=== PATIENT | female | born 1960 | race Caucasian/White ===

== ENCOUNTER 2016-06-11 11:19 | Emergency (ER) | payer OTHER ==
[~2016-06-11] VITALS: Ht 167.6 cm; Wt 82.7 kg
[~2016-06-11 11:19] MED LIST: ADVAIR 250/501 DISK IH; ADVAIR 500/501 DISK IH; ADVAIR HFA120 INHALA IH; ALPRAZOLAM0.25 M2 PO; AMITRIPTYLINE H10 MG PO; ATARAX,VISTARIL25 MG PO; ATIVAN0.5 MG PO; Advair HFA 115/21 IH; BUTALB-APAP-CA1 EACH PO; CIPRO500 MG PO; Ceftin PO; DAILY VITE1 EAC1 PO; DELTASONE10 MG PO; DEXILANT60 MG PO; DULCOLAX10 MG PR; DUONEB 2.5-0.5 M3 ML AEROSOL; ELAVIL25 MG PO; ESOMEPRAZOLE MA40 MG PO; EXCEDRIN MIGRA1 EAC3 PO; FEVERALL650 M1 PR; FIORICET 50-301 EACH PO; FIORICET,ESG1 TABLET PO; Fioricet,Esgic,Repan PO; GUAIASORB DM L118 ML PO; HALOPERIDOL2 MG/1 ML PO; HYDROMORPHONE HC4 MG PO; INDERAL40 MG PO; INDOCIN25 MG PO; KADIAN10 MG PO; LEVSIN0.125 MG PO; LEXAPRO10 MG PO; LEXAPRO20 MG PO; LISINOPRIL20 MG PO; Lexapro PO; MORPHINE CON20 MG/M1 PO; NEXIUM40 MG PO; NICODERM CQ1 EAC2 TD; NICOTINE PATCH1 EAC2 TD; NOHOMEMEDS; ONDANSETRON ODT4 MG PO; PEPCID20 MG PO; PREDNISONE10 MG PO; PRILOSEC20 MG PO; PRINIVIL10 MG PO; PROAIR HFA8.5 GM IH; PROCHLORPERAZIN10 MG PO; PROPRANOLOL HCL40 MG PO; PROTONIX40 MG PO; PROVENTIL,2.5 MG/0.5 IH; PROVENTIL2.5 MG/3 M IH; Protonix PO; REGLAN5 MG PO; SENNA8.6 MG PO; SPIRIVA RESPIMAT4 GM IH; SPIRIVA1 INHALATI; SPIRIVA1 INHALATI IH; SYMBICORT60 INHALAT IH; ULTRAM50 MG PO; Ultram PO; VENTOLIN17 GM IH; XANAX0.25 MG PO; ZESTRIL20 MG PO; ZOCOR20 MG PO; ZOFRAN ODT8 MG PO; Zestril,Prinivil PO
[2016-06-11] MEDS ORDERED: ATIVAN0.5 MG PO (14:00)
[2016-06-11] MEDS ORDERED: INDERAL40 MG PO (14:00)
[2016-06-11 14:14] VITALS: BP 138/87
== END 2016-06-11 14:15 | disposition home or self-care (01) ==
LOC: EME 11:19
DX: Z76.0 Encounter for issue of repeat prescription (principal); F41.9 Anxiety disorder, unspecified; G43.909 Migraine, unspecified, not intractable, without status migrainosus
CPT/HCPCS: 99281; 99283

== ENCOUNTER 2016-08-24 13:29 | Emergency (ER) | payer OTHER ==
[~2016-08-24] VITALS: Ht 167.6 cm; Wt 66.1 kg
[2016-08-24] MEDS ORDERED: ADVAIR 250/501 DISK IH (13:52)
[2016-08-24] MEDS ORDERED: OMEPRAZOLE20 MG PO (13:52)
[2016-08-24] MEDS ORDERED: SPIRIVA1 INHALATI IH (13:53)
[2016-08-24] MEDS ORDERED: VENLAFAXINE HCL75 M3 PO (13:54)
[2016-08-24] MEDS ORDERED: LISINOPRIL20 MG PO (13:54)
[2016-08-24] MEDS ORDERED: CLONAZEPAM1 MG PO (13:54)
[2016-08-24] MEDS ORDERED: PROAIR HFA8.5 GM IH (13:55)
[2016-08-24 14:27] LABS: HEMATOCRIT 35.1 % (36.0-46.0); MCH 30.5 PG (29.0-34.0); MCHC 34.2 G/DL (30.0-36.0); MCV 89.3 FL (83-99); MEAN PLAT.VOLUME 9.5 uM^3 (9.5-12.4); PLATELET COUNT 430 K/uL (156-360); RBC DIS.WIDTH-CV 11.8 % (11.8-14.6); RED BLOOD COUNT 3.93 M/uL (3.80-5.20); WHITE BLOOD COUNT 17.2 K/uL (4.1-10.2)
[2016-08-24 14:36] LABS: CHLORIDE 96 mEq/L (99-109); POTASSIUM 4.5 mEq/L (3.7-5.4); SODIUM 127 mEq/L (136-147)
[2016-08-24 14:38] LABS: GLUCOSE 164 mg/dL (70-99)
[2016-08-24 14:39] LABS: ANION GAP 10 MEQ/L (2-14)
[2016-08-24 14:40] LABS: TOTAL BILIRUBIN 0.2 mg/dL (0.0-1.0)
[2016-08-24 14:42] LABS: ALKALINE PHOSPHATASE 78 IU/L (3-129); GFR ESTIMATE (CALCULATED) > 59 mL/min/
[2016-08-24 14:43] LABS: UREA NITROGEN (BUN) 17 mg/dL (9-23)
[2016-08-24 14:45] LABS: LIPASE 7 U/L (1.0-51.0)
[2016-08-24 15:00] LABS: ADD MIUA? NO; BILIRUBIN NEGATIVE; BLOOD NEGATIVE; COLOR COLORLESS ((YELLOW)); GLUCOSE (STRIP) NEGATIVE; KETONES NEGATIVE; LEUKOCYTES NEGATIVE; NITRITE NEGATIVE; PROTEIN (STRIP) NEGATIVE; SPECIFIC GRAVITY 1.006 (1.000-1.030); UROBILINOGEN 0.2 MG/DL (0.2-1.0)
[2016-08-24] MEDS ORDERED: PROTONIX40 MG PO (16:03)
[2016-08-24] MEDS ORDERED: BENTYL20 MG PO (16:03)
[2016-08-24 16:21] VITALS: BP 117/95
[2016-08-25] MEDS ORDERED: LEXAPRO20 MG PO (15:57)
[2016-08-25] MEDS ORDERED: DUONEB 2.5-0.5 M3 ML AEROSOL (15:58)
== END 2016-08-24 16:23 | disposition home or self-care (01) ==
LOC: EME → EDBD 13:29 → EME 13:29
PROVIDERS: Nurse Practitioner Family
DX: K27.9 Peptic ulcer, site unspecified, unspecified as acute or chronic, without hemorrhage or perforation (principal); D72.829 Elevated white blood cell count, unspecified; E78.5 Hyperlipidemia, unspecified; I10 Essential (primary) hypertension; Z88.6 Allergy status to analgesic agent
CPT/HCPCS: 80053; 81003; 83605; 83690; 85027; 99281; 99285; J2270; J7030

== ENCOUNTER 2016-08-25 11:47 | Inpatient (IN) | payer OTHER ==
[~2016-08-25] VITALS: Ht 142.2 cm; Wt 37.0 kg
[~2016-08-25 11:47] MED LIST changes: +BENTYL20 MG PO; +CLONAZEPAM1 MG PO; +OMEPRAZOLE20 MG PO; +VENLAFAXINE HCL75 M3 PO
[2016-08-25 12:40] LABS: BASOPHIL COUNT 0.1 K/uL (0-0.1); EOSINOPHIL (%) 1.9 % (0-5); EOSINOPHIL COUNT 0.3 K/uL (0-0.3); HEMATOCRIT 32.9 % (36.0-46.0); IMMATURE GRANULOCYTE (%) 0.7 % (0.0-0.7); IMMATURE GRANULOCYTE COUNT 0.1 K/uL; LYMPHOCYTE COUNT 1.9 K/uL (1.0-2.8); MCH 30.9 PG (29.0-34.0); MCV 90.6 FL (83-99); MEAN PLAT.VOLUME 9.8 uM^3 (9.5-12.4); MONOCYTE COUNT 0.9 K/uL (0-0.8); NEUTROPHIL (%) 78.6 % (45-76); PLATELET COUNT 445 K/uL (156-360); RBC DIS.WIDTH-CV 12.3 % (11.8-14.6); RBC DIS.WIDTH-SD 40.4 % (39-53); RED BLOOD COUNT 3.63 M/uL (3.80-5.20); WHITE BLOOD COUNT 15.3 K/uL (4.1-10.2)
[2016-08-25 12:50] LABS: CHLORIDE 102 mEq/L (99-109); POTASSIUM 4.4 mEq/L (3.7-5.4)
[2016-08-25 12:52] LABS: SODIUM 135 mEq/L (136-147)
[2016-08-25 12:53] LABS: GLUCOSE 147 mg/dL (70-99)
[2016-08-25 12:54] LABS: ANION GAP 10 MEQ/L (2-14)
[2016-08-25 12:56] LABS: ALKALINE PHOSPHATASE 67 IU/L (3-129); GFR ESTIMATE (CALCULATED) > 59 mL/min/
[2016-08-25 12:57] LABS: UREA NITROGEN (BUN) 17 mg/dL (9-23)
[2016-08-25 13:00] LABS: LIPASE 8 U/L (1.0-51.0)
[2016-08-25 13:01] LABS: TOTAL BILIRUBIN 0.1 mg/dL (0.0-1.0)
[2016-08-25] MEDS ORDERED: LEXAPRO20 MG PO (15:57)
[2016-08-25] MEDS ORDERED: DUONEB 2.5-0.5 M3 ML AEROSOL (15:58)
[2016-08-25 21:22] VITALS: BP 150/94
[2016-08-26] VITALS: BP 132/95
[2016-08-26 03:32] VITALS: BP 141/96
[2016-08-26 07:23] LABS: BASOPHIL COUNT 0.1 K/uL (0-0.1); EOSINOPHIL (%) 4.7 % (0-5); EOSINOPHIL COUNT 0.6 K/uL (0-0.3); HEMATOCRIT 31.1 % (36.0-46.0); IMMATURE GRANULOCYTE (%) 0.6 % (0.0-0.7); IMMATURE GRANULOCYTE COUNT 0.1 K/uL; INSTRUMENT ABS NEUTROPHIL CT 8.5 K/uL; LYMPHOCYTE COUNT 2.3 K/uL (1.0-2.8); MCH 30.6 PG (29.0-34.0); MCHC 32.5 G/DL (30.0-36.0); MCV 94.2 FL (83-99); MEAN PLAT.VOLUME 9.8 uM^3 (9.5-12.4); MONOCYTE (%) 8.4 % (3-12); MONOCYTE COUNT 1.1 K/uL (0-0.8); NEUTROPHIL (%) 67.6 % (45-76); NEUTROPHIL COUNT 8.5 K/uL (1.8-6.4); PLATELET COUNT 408 K/uL (156-360); RBC DIS.WIDTH-CV 12.6 % (11.8-14.6); RBC DIS.WIDTH-SD 43.6 % (39-53); WHITE BLOOD COUNT 12.5 K/uL (4.1-10.2)
[2016-08-26 07:49] VITALS: BP 151/94
[2016-08-26 08:29] LABS: ANION GAP 8 MEQ/L (2-14); CHLORIDE 101 MEQ/L (99-109); GFR ESTIMATE (CALCULATED) > 59 mL/min/; GLUCOSE 138 mg/dL (70-99); IRON 106 MCG/DL (35-150); POTASSIUM 4.4 MEQ/L (3.7-5.4); SAMPLE HEMOLYSIS CHECK 0; SAMPLE ICTERIC CHECK 0; SAMPLE LIPEMIA CHECK 0; SODIUM 135 MEQ/L (136-147); UREA NITROGEN (BUN) 8 mg/dL (9-23)
[2016-08-26 08:33] LABS: TROP-I INTERPRETATION NEGATIVE; TROPONIN-I < 0.01 ng/mL (0.0-0.30)
[2016-08-26 11:23] VITALS: BP 156/99
[2016-08-26 15:20] VITALS: BP 156/98
[2016-08-26 19:25] VITALS: BP 145/99
[2016-08-27] VITALS (9 sets, daily range): BP systolic 113–175; BP diastolic 76–106
[2016-08-27 06:44] LABS: HEMATOCRIT 29.8 % (36.0-46.0); MCH 30.6 PG (29.0-34.0); MCHC 33.2 G/DL (30.0-36.0); MEAN PLAT.VOLUME 9.8 uM^3 (9.5-12.4); PLATELET COUNT 406 K/uL (156-360); RBC DIS.WIDTH-CV 12.6 % (11.8-14.6); RBC DIS.WIDTH-SD 41.3 % (39-53); RED BLOOD COUNT 3.24 M/uL (3.80-5.20); WHITE BLOOD COUNT 12.2 K/uL (4.1-10.2)
[2016-08-28] VITALS (7 sets, daily range): BP systolic 125–170; BP diastolic 82–107
[2016-08-28 07:33] LABS: EOSINOPHIL (%) 4.8 % (0-5); EOSINOPHIL COUNT 0.6 K/uL (0-0.3); HEMATOCRIT 31.2 % (36.0-46.0); IMM.RETIC FRACTION 27.8 % (3-19); IMMATURE GRANULOCYTE (%) 0.6 % (0.0-0.7); IMMATURE GRANULOCYTE COUNT 0.1 K/uL; INSTRUMENT ABS NEUTROPHIL CT 8.3 K/uL; LYMPHOCYTE COUNT 1.8 K/uL (1.0-2.8); MCH 30.8 PG (29.0-34.0); MCHC 33.3 G/DL (30.0-36.0); MCV 92.3 FL (83-99); MEAN PLAT.VOLUME 9.6 uM^3 (9.5-12.4); MONOCYTE (%) 8.5 % (3-12); NEUTROPHIL (%) 70.8 % (45-76); NEUTROPHIL COUNT 8.3 K/uL (1.8-6.4); PLATELET COUNT 445 K/uL (156-360); RBC DIS.WIDTH-CV 12.7 % (11.8-14.6); RBC DIS.WIDTH-SD 41.3 % (39-53); RED BLOOD COUNT 3.38 M/uL (3.80-5.20); RETIC HGB EQUIVALENT 38.8 (28-36); RETICULOCYTE COUNT 3.8 % (0.5-1.8); WHITE BLOOD COUNT 11.7 K/uL (4.1-10.2)
[2016-08-29] VITALS (7 sets, daily range): BP systolic 121–162; BP diastolic 80–100
[2016-08-30] VITALS: BP 116/57
[2016-08-30 03:28] VITALS: BP 123/81
[2016-08-30 07:08] LABS: EOSINOPHIL (%) 0.9 % (0-5); EOSINOPHIL COUNT 0.1 K/uL (0-0.3); HEMATOCRIT 32.4 % (36.0-46.0); IMMATURE GRANULOCYTE (%) 0.6 % (0.0-0.7); IMMATURE GRANULOCYTE COUNT 0.1 K/uL; INSTRUMENT ABS NEUTROPHIL CT 10.6 K/uL; LYMPHOCYTE COUNT 1.1 K/uL (1.0-2.8); MCH 30.9 PG (29.0-34.0); MCHC 33.3 G/DL (30.0-36.0); MCV 92.6 FL (83-99); MEAN PLAT.VOLUME 9.5 uM^3 (9.5-12.4); MONOCYTE (%) 5.2 % (3-12); MONOCYTE COUNT 0.7 K/uL (0-0.8); NEUTROPHIL (%) 84.5 % (45-76); NEUTROPHIL COUNT 10.6 K/uL (1.8-6.4); PLATELET COUNT 477 K/uL (156-360); RBC DIS.WIDTH-SD 42.6 % (39-53); WHITE BLOOD COUNT 12.6 K/uL (4.1-10.2)
[2016-08-30 07:41] LABS: ALKALINE PHOSPHATASE 66 IU/L (3-129); ANION GAP 10 MEQ/L (2-14); CHLORIDE 93 MEQ/L (99-109); GFR ESTIMATE (CALCULATED) > 59 mL/min/; GLUCOSE 142 mg/dL (70-99); POTASSIUM 4.8 MEQ/L (3.7-5.4); SAMPLE HEMOLYSIS CHECK 0; SAMPLE ICTERIC CHECK 0; SAMPLE LIPEMIA CHECK 0; SODIUM 130 MEQ/L (136-147); TOTAL BILIRUBIN 0.3 MG/DL (0.0-1.0); UREA NITROGEN (BUN) 6 mg/dL (9-23)
[2016-08-30 07:50] VITALS: BP 119/68
[2016-08-30 14:57] VITALS: BP 105/69
[2016-08-30 20:00] VITALS: BP 132/84
[2016-08-31 00:15] VITALS: BP 145/79
[2016-08-31 04:00] VITALS: BP 114/81
[2016-08-31 07:18] VITALS: BP 101/77
[2016-08-31 07:26] LABS: EOSINOPHIL (%) 0.1 % (0-5); HEMATOCRIT 29.7 % (36.0-46.0); IMMATURE GRANULOCYTE (%) 0.7 % (0.0-0.7); IMMATURE GRANULOCYTE COUNT 0.1 K/uL; INSTRUMENT ABS NEUTROPHIL CT 14.2 K/uL; LYMPHOCYTE COUNT 1.4 K/uL (1.0-2.8); MCH 31.8 PG (29.0-34.0); MCV 90.8 FL (83-99); MEAN PLAT.VOLUME 11.1 uM^3 (9.5-12.4); MONOCYTE (%) 4.6 % (3-12); MONOCYTE COUNT 0.8 K/uL (0-0.8); NEUTROPHIL (%) 86.2 % (45-76); NEUTROPHIL COUNT 14.2 K/uL (1.8-6.4); PLATELET COUNT 738 K/uL (156-360); RBC DIS.WIDTH-CV 14.9 % (11.8-14.6); RBC DIS.WIDTH-SD 45.1 % (39-53); RED BLOOD COUNT 3.27 M/uL (3.80-5.20); WHITE BLOOD COUNT 16.5 K/uL (4.1-10.2)
[2016-08-31 07:41] LABS: AMYLASE 36 IU/L (1-118); ANION GAP 10 MEQ/L (2-14); CHLORIDE 92 MEQ/L (99-109); GFR ESTIMATE (CALCULATED) > 59 mL/min/; GLUCOSE 151 mg/dL (70-99); LIPASE 8 U/L (1.0-51.0); POTASSIUM 4.7 MEQ/L (3.7-5.4); SAMPLE HEMOLYSIS CHECK 0; SAMPLE ICTERIC CHECK 0; SAMPLE LIPEMIA CHECK 0; SODIUM 132 MEQ/L (136-147); UREA NITROGEN (BUN) 9 mg/dL (9-23)
[2016-08-31 11:01] VITALS: BP 122/80
[2016-08-31 15:03] VITALS: BP 142/80
[2016-08-31 19:38] VITALS: BP 144/81
[2016-09-01] VITALS (7 sets, daily range): BP systolic 104–128; BP diastolic 68–80
[2016-09-02 03:27] VITALS: BP 116/79
[2016-09-02 07:14] LABS: BASOPHIL COUNT 0.1 K/uL (0-0.1); EOSINOPHIL (%) 4.4 % (0-5); EOSINOPHIL COUNT 0.5 K/uL (0-0.3); HEMATOCRIT 32.2 % (36.0-46.0); IMMATURE GRANULOCYTE (%) 0.6 % (0.0-0.7); IMMATURE GRANULOCYTE COUNT 0.1 K/uL; INSTRUMENT ABS NEUTROPHIL CT 6.9 K/uL; LYMPHOCYTE COUNT 2.9 K/uL (1.0-2.8); MCH 30.6 PG (29.0-34.0); MEAN PLAT.VOLUME 9.3 uM^3 (9.5-12.4); MONOCYTE (%) 9.8 % (3-12); MONOCYTE COUNT 1.1 K/uL (0-0.8); NEUTROPHIL (%) 59.4 % (45-76); NEUTROPHIL COUNT 6.9 K/uL (1.8-6.4); PLATELET COUNT 567 K/uL (156-360); RBC DIS.WIDTH-CV 13.6 % (11.8-14.6); RBC DIS.WIDTH-SD 46.8 % (39-53); RED BLOOD COUNT 3.37 M/uL (3.80-5.20); WHITE BLOOD COUNT 11.6 K/uL (4.1-10.2)
[2016-09-02 07:19] LABS: MCV 95.5 FL (83-99)
[2016-09-02 07:37] VITALS: BP 118/79
[2016-09-02 11:14] VITALS: BP 121/75
[2016-09-02 16:00] VITALS: BP 123/87
[2016-09-02] MEDS ORDERED: HYDROMORPHONE HC4 MG PO (16:28)
[2016-09-02] MEDS ORDERED: LORAZEPAM0.5 MG PO (16:28)
[2016-09-02 19:49] VITALS: BP 113/84
[2016-09-03 00:23] VITALS: BP 100/73
[2016-09-03 04:12] VITALS: BP 121/89
[2016-09-03 07:51] VITALS: BP 123/85
[2016-09-03 10:53] VITALS: BP 130/80
[2016-09-03] MEDS ORDERED: PROPRANOLOL HCL20 MG PO (14:15)
[2016-09-03] MEDS ORDERED: BUSPAR15 MG PO (14:15)
[2016-09-03] MEDS ORDERED: BENTYL20 MG PO (14:15)
[2016-09-03] MEDS ORDERED: PANTOPRAZOLE SO40 MG PO (14:15)
[2016-09-03] MEDS ORDERED: LISINOPRIL40 MG PO (14:15)
[2016-09-03] MEDS ORDERED: REGLAN5 MG PO (14:15)
[2016-09-03] MEDS ORDERED: LORAZEPAM0.5 MG PO (14:15)
[2016-09-03] MEDS ORDERED: HYDROMORPHONE HC4 MG PO (14:15)
[2016-09-03 15:06] VITALS: BP 115/78
== END 2016-09-03 18:50 | disposition home or self-care (01) | DRG 391 ==
LOC: EME 11:47 → EDOF 15:00 → 5SOUTH 15:00
PROVIDERS: Emergency Medicine; Hospitalist; Internal Medicine; Specialist
PROC: 0DB98ZX Excision of Duodenum, Via Natural or Artificial Opening Endoscopic, Diagnostic (ICD-10-PCS; principal; 2016-08-29)
PROC: 0DB68ZX Excision of Stomach, Via Natural or Artificial Opening Endoscopic, Diagnostic (ICD-10-PCS; principal; 2016-08-29)
DX: K29.80 Duodenitis without bleeding (principal); J18.9 Pneumonia, unspecified organism; K92.1 Melena; J96.10 Chronic respiratory failure, unspecified whether with hypoxia or hypercapnia; F33.9 Major depressive disorder, recurrent, unspecified; F41.9 Anxiety disorder, unspecified; E78.5 Hyperlipidemia, unspecified; E86.0 Dehydration; K31.84 Gastroparesis; R63.0 Anorexia; R07.9 Chest pain, unspecified; D64.9 Anemia, unspecified; D72.829 Elevated white blood cell count, unspecified; J44.9 Chronic obstructive pulmonary disease, unspecified; G89.29 Other chronic pain; I10 Essential (primary) hypertension; E66.9 Obesity, unspecified; K21.9 Gastro-esophageal reflux disease without esophagitis; Z88.0 Allergy status to penicillin; Z88.6 Allergy status to analgesic agent; Z87.891 Personal history of nicotine dependence; Z99.81 Dependence on supplemental oxygen; K22.2 Esophageal obstruction; K44.9 Diaphragmatic hernia without obstruction or gangrene
CPT/HCPCS: 71020; 71250; 74177; 76705; 78264; 78452; 80048; 80053; 81003; 82150; 82272; 82607; 82728; 82746; 83540; 83605; 83690; 84466; 84484; 85025; 85027; 85045; 87040; 88305; 88342 TC; 93005; 93017; 93306; 94640; 94640 76; 94760; 94799; 99202; 99281; 99285; A9500; A9541; C9113; J0456; J0696; J2060; J2270; J2405; J2765; J2785; J2920; J3010; J7030; J7042; J7050; J7120

== ENCOUNTER 2016-12-29 05:03 | Inpatient (IN) | payer OTHER ==
[~2016-12-29] VITALS: Ht 167.6 cm; Wt 83.0 kg
[~2016-12-29 05:03] MED LIST changes: +BUSPAR15 MG PO; +LISINOPRIL40 MG PO; +LORAZEPAM0.5 MG PO; +PANTOPRAZOLE SO40 MG PO; +PROPRANOLOL HCL20 MG PO
[2016-12-29 05:55] LABS: BASOPHIL COUNT 0.1 K/uL (0-0.1); EOSINOPHIL (%) 4.6 % (0-5); EOSINOPHIL COUNT 0.6 K/uL (0-0.3); HEMATOCRIT 36.7 % (36.0-46.0); IMMATURE GRANULOCYTE (%) 0.5 % (0.0-0.7); IMMATURE GRANULOCYTE COUNT 0.1 K/uL; INSTRUMENT ABS NEUTROPHIL CT 9.9 K/uL; LYMPHOCYTE COUNT 1.6 K/uL (1.0-2.8); MCH 29.9 PG (29.0-34.0); MCHC 33.2 G/DL (30.0-36.0); MEAN PLAT.VOLUME 9.8 uM^3 (9.5-12.4); MONOCYTE (%) 9.7 % (3-12); MONOCYTE COUNT 1.3 K/uL (0-0.8); NEUTROPHIL (%) 72.6 % (45-76); NEUTROPHIL COUNT 9.9 K/uL (1.8-6.4); PLATELET COUNT 445 K/uL (156-360); RBC DIS.WIDTH-CV 11.7 % (11.8-14.6); RBC DIS.WIDTH-SD 37.7 % (39-53); RED BLOOD COUNT 4.08 M/uL (3.80-5.20); WHITE BLOOD COUNT 13.6 K/uL (4.1-10.2)
[2016-12-29 06:14] LABS: CHLORIDE 84 mEq/L (99-109); POTASSIUM 4.2 mEq/L (3.7-5.4); SODIUM 129 mEq/L (136-147)
[2016-12-29 06:16] LABS: GLUCOSE 170 mg/dL (70-99)
[2016-12-29 06:17] LABS: ANION GAP 12 MEQ/L (2-14)
[2016-12-29 06:18] LABS: TOTAL BILIRUBIN 0.1 mg/dL (0.0-1.0)
[2016-12-29 06:19] LABS: ALKALINE PHOSPHATASE 73 IU/L (3-129)
[2016-12-29 06:20] LABS: GFR ESTIMATE (CALCULATED) > 59 mL/min/
[2016-12-29 06:21] LABS: UREA NITROGEN (BUN) 10 mg/dL (9-23)
[2016-12-29 06:22] LABS: TROP-I INTERPRETATION NEGATIVE; TROPONIN-I < 0.01 ng/mL (0.0-0.30)
[2016-12-29 09:38] VITALS: BP 156/93
[2016-12-29 12:04] LABS: ADD MIUA? NO; BILIRUBIN NEGATIVE; BLOOD NEGATIVE; COLOR YELLOW ((YELLOW)); GLUCOSE (STRIP) 50; KETONES 20; LEUKOCYTES NEGATIVE; NITRITE NEGATIVE; PROTEIN (STRIP) NEGATIVE; UCUL ADDED? NO; UROBILINOGEN 0.2 MG/DL (0.2-1.0)
[2016-12-29 12:21] VITALS: BP 113/95
[2016-12-29 16:41] VITALS: BP 136/95
[2016-12-29 19:50] VITALS: BP 155/101
[2016-12-29 21:05] VITALS: BP 182/114
[2016-12-29 22:06] VITALS: BP 136/87
[2016-12-30] VITALS (8 sets, daily range): BP systolic 108–168; BP diastolic 52–105
[2016-12-30 06:55] LABS: HEMATOCRIT 38.1 % (36.0-46.0); MCH 29.4 PG (29.0-34.0); MCHC 33.3 G/DL (30.0-36.0); MCV 88.2 FL (83-99); MEAN PLAT.VOLUME 9.9 uM^3 (9.5-12.4); PLATELET COUNT 534 K/uL (156-360); RBC DIS.WIDTH-CV 11.8 % (11.8-14.6); RBC DIS.WIDTH-SD 37.5 % (39-53); RED BLOOD COUNT 4.32 M/uL (3.80-5.20); WHITE BLOOD COUNT 16.7 K/uL (4.1-10.2)
[2016-12-30 07:24] LABS: ALKALINE PHOSPHATASE 65 IU/L (3-129); ANION GAP 9 MEQ/L (2-14); CHLORIDE 85 MEQ/L (99-109); GFR ESTIMATE (CALCULATED) > 59 mL/min/; GLUCOSE 130 mg/dL (70-99); POTASSIUM 4.7 MEQ/L (3.7-5.4); SAMPLE HEMOLYSIS CHECK 1; SAMPLE ICTERIC CHECK 0; SAMPLE LIPEMIA CHECK 0; SODIUM 127 MEQ/L (136-147); TOTAL BILIRUBIN 0.2 MG/DL (0.0-1.0); UREA NITROGEN (BUN) 7 mg/dL (9-23)
[2016-12-31] VITALS (8 sets, daily range): BP systolic 115–184; BP diastolic 64–111
[2016-12-31 06:39] LABS: MCH 31.3 PG (29.0-34.0); MCHC 35.3 G/DL (30.0-36.0); MCV 88.9 FL (83-99); MEAN PLAT.VOLUME 10.5 uM^3 (9.5-12.4); PLATELET COUNT 560 K/uL (156-360); RBC DIS.WIDTH-SD 38.3 % (39-53); WHITE BLOOD COUNT 23.5 K/uL (4.1-10.2)
[2016-12-31 07:10] LABS: ANION GAP 15 MEQ/L (2-14); CHLORIDE 80 MEQ/L (99-109); GFR ESTIMATE (CALCULATED) > 59 mL/min/; GLUCOSE 118 mg/dL (70-99); POTASSIUM 4.9 MEQ/L (3.7-5.4); SAMPLE HEMOLYSIS CHECK 0; SAMPLE ICTERIC CHECK 0; SAMPLE LIPEMIA CHECK 0; SODIUM 121 MEQ/L (136-147); UREA NITROGEN (BUN) 10 mg/dL (9-23)
[2016-12-31 08:35] LABS: SODIUM 120 MEQ/L (136-147)
[2016-12-31 10:11] LABS: URIC ACID < 1.5 mg/dL (3.1-9.2)
[2016-12-31 18:44] LABS: ANION GAP 9 MEQ/L (2-14); CHLORIDE 83 MEQ/L (99-109); GFR ESTIMATE (CALCULATED) > 59 mL/min/; GLUCOSE 133 mg/dL (70-99); POTASSIUM 4.3 MEQ/L (3.7-5.4); SAMPLE HEMOLYSIS CHECK 0; SAMPLE ICTERIC CHECK 0; SAMPLE LIPEMIA CHECK 0; SODIUM 122 MEQ/L (136-147); UREA NITROGEN (BUN) 9 mg/dL (9-23)
[2017-01-01 03:13] LABS: CHLORIDE 85 MEQ/L (99-109); GFR ESTIMATE (CALCULATED) > 59 mL/min/; GLUCOSE 118 mg/dL (70-99); POTASSIUM 4.6 MEQ/L (3.7-5.4); SODIUM 125 MEQ/L (136-147); UREA NITROGEN (BUN) 11 mg/dL (9-23)
[2017-01-01 03:55] VITALS: BP 143/88
[2017-01-01 07:15] VITALS: BP 163/97
[2017-01-01 07:32] LABS: ANION GAP 8 MEQ/L (2-14); CHLORIDE 85 MEQ/L (99-109); GFR ESTIMATE (CALCULATED) > 59 mL/min/; GLUCOSE 119 mg/dL (70-99); POTASSIUM 4.9 MEQ/L (3.7-5.4); SAMPLE HEMOLYSIS CHECK 0; SAMPLE ICTERIC CHECK 0; SAMPLE LIPEMIA CHECK 0; SODIUM 125 MEQ/L (136-147); UREA NITROGEN (BUN) 10 mg/dL (9-23)
[2017-01-01 07:35] LABS: URIC ACID 2.2 mg/dL (3.1-9.2)
[2017-01-01 11:51] VITALS: BP 137/92
[2017-01-01 15:05] VITALS: BP 163/91
[2017-01-01 19:54] VITALS: BP 137/86
[2017-01-02 04:58] VITALS: BP 152/86
[2017-01-02 07:05] VITALS: BP 154/98
[2017-01-02 07:07] LABS: EOSINOPHIL (%) 1.1 % (0-5); EOSINOPHIL COUNT 0.1 K/uL (0-0.3); IMMATURE GRANULOCYTE (%) 0.6 % (0.0-0.7); IMMATURE GRANULOCYTE COUNT 0.1 K/uL; INSTRUMENT ABS NEUTROPHIL CT 7.8 K/uL; MCH 30.3 PG (29.0-34.0); MCHC 32.7 G/DL (30.0-36.0); MCV 92.7 FL (83-99); MEAN PLAT.VOLUME 9.9 uM^3 (9.5-12.4); MONOCYTE (%) 12.1 % (3-12); MONOCYTE COUNT 1.5 K/uL (0-0.8); NEUTROPHIL (%) 62.3 % (45-76); NEUTROPHIL COUNT 7.8 K/uL (1.8-6.4); PLATELET COUNT 493 K/uL (156-360); RBC DIS.WIDTH-CV 12.4 % (11.8-14.6); RBC DIS.WIDTH-SD 42.3 % (39-53); RED BLOOD COUNT 3.99 M/uL (3.80-5.20); WHITE BLOOD COUNT 12.5 K/uL (4.1-10.2)
[2017-01-02 07:26] LABS: ANION GAP 5 MEQ/L (2-14); CHLORIDE 89 MEQ/L (99-109); GFR ESTIMATE (CALCULATED) > 59 mL/min/; GLUCOSE 95 mg/dL (70-99); POTASSIUM 4.2 MEQ/L (3.7-5.4); SAMPLE HEMOLYSIS CHECK 0; SAMPLE ICTERIC CHECK 0; SAMPLE LIPEMIA CHECK 0; UREA NITROGEN (BUN) 7 mg/dL (9-23)
[2017-01-02 07:29] LABS: SODIUM 133 MEQ/L (136-147)
[2017-01-02 11:50] VITALS: BP 130/84
[2017-01-02 20:09] VITALS: BP 127/82
[2017-01-02 23:41] VITALS: BP 122/86
[2017-01-03 03:53] VITALS: BP 128/73
[2017-01-03 06:54] LABS: ANION GAP 6 MEQ/L (2-14); CHLORIDE 93 MEQ/L (99-109); GFR ESTIMATE (CALCULATED) > 59 mL/min/; GLUCOSE 133 mg/dL (70-99); POTASSIUM 4.5 MEQ/L (3.7-5.4); SAMPLE HEMOLYSIS CHECK 0; SAMPLE ICTERIC CHECK 0; SAMPLE LIPEMIA CHECK 0; SODIUM 136 MEQ/L (136-147); UREA NITROGEN (BUN) 11 mg/dL (9-23); URIC ACID 2.7 mg/dL (3.1-9.2)
[2017-01-03 07:05] VITALS: BP 122/76
[2017-01-03] MEDS ORDERED: SPIRIVA RESPIMAT4 GM IH (11:05)
[2017-01-03] MEDS ORDERED: PREDNISONE10 MG PO (11:05)
[2017-01-03] MEDS ORDERED: PROPRANOLOL HCL20 MG PO (11:05)
[2017-01-03] MEDS ORDERED: BUSPAR15 MG PO (11:05)
[2017-01-03] MEDS ORDERED: LISINOPRIL40 MG PO (11:05)
[2017-01-03] MEDS ORDERED: BUTALB-APAP-CA1 EACH PO (11:05)
[2017-01-03] MEDS ORDERED: PULMICORT FLE180 MCG IH (11:05)
[2017-01-03] MEDS ORDERED: CLONAZEPAM1 MG PO (11:05)
[2017-01-03] MEDS ORDERED: ESCITALOPRAM OX20 MG PO (11:05)
[2017-01-03] MEDS ORDERED: PANTOPRAZOLE SO40 MG PO (11:05)
[2017-01-03] MEDS ORDERED: VENTOLIN HFA18 GM IH (11:06)
[2017-01-03 11:45] VITALS: BP 145/94
== END 2017-01-03 14:44 | disposition home or self-care (01) | DRG 191 ==
LOC: EME → EDBD 05:03 → 2EAST 07:16 → EDOF 07:16 → 2EAST 09:28
PROVIDERS: Emergency Medicine; Hospitalist; Internal Medicine; Internal Medicine Nephrology
DX: J44.1 Chronic obstructive pulmonary disease with (acute) exacerbation (principal); J96.11 Chronic respiratory failure with hypoxia; E87.1 Hypo-osmolality and hyponatremia; F32.9 Major depressive disorder, single episode, unspecified; E78.5 Hyperlipidemia, unspecified; E11.9 Type 2 diabetes mellitus without complications; I10 Essential (primary) hypertension; R91.1 Solitary pulmonary nodule; F41.9 Anxiety disorder, unspecified; R64 Cachexia; K21.9 Gastro-esophageal reflux disease without esophagitis; T38.0X5A Adverse effect of glucocorticoids and synthetic analogues, initial encounter; G25.81 Restless legs syndrome; M81.0 Age-related osteoporosis without current pathological fracture; Z91.19 Patient's noncompliance with other medical treatment and regimen; Z99.81 Dependence on supplemental oxygen; Z68.29 Body mass index [BMI] 29.0-29.9, adult; Z87.891 Personal history of nicotine dependence
CPT/HCPCS: 70450; 71020; 80048; 80048 91; 80053; 81003; 82306; 83880; 83930; 83935; 84295; 84300; 84443; 84484; 84550; 85025; 85027; 87493; 87506; 93005; 94640; 94640 76; 94799; 99202; 99281; 99285; J0360; J1170; J1644; J2405; J2920; J7030

== ENCOUNTER 2017-01-08 15:14 | Emergency (ER) | payer OTHER ==
[~2017-01-08] VITALS: Ht 167.6 cm; Wt 83.1 kg
[~2017-01-08 15:14] MED LIST changes: +ESCITALOPRAM OX20 MG PO; +PULMICORT FLE180 MCG IH; +VENTOLIN HFA18 GM IH
[2017-01-08 16:17] LABS: ADD MIUA? YES; BILIRUBIN NEGATIVE; BLOOD NEGATIVE; COLOR YELLOW ((YELLOW)); GLUCOSE (STRIP) NEGATIVE; KETONES NEGATIVE; LEUKOCYTES NEGATIVE; NITRITE NEGATIVE; PROTEIN (STRIP) NEGATIVE; SPECIFIC GRAVITY 1.012 (1.000-1.030); UROBILINOGEN 0.2 MG/DL (0.2-1.0)
[2017-01-08 16:26] LABS: BACTERIA RARE /HPF; EPITHELIAL CELLS 1+ /HPF; MUCUS TRACE /LPF; RED BLOOD CELLS 0-5 /HPF (0-5); UCUL ADDED? NO; WHITE BLOOD CELLS 0-5 /HPF (0-5)
[2017-01-08 16:34] LABS: EOSINOPHIL (%) 1.5 % (0-5); EOSINOPHIL COUNT 0.2 K/uL (0-0.3); IMMATURE GRANULOCYTE (%) 0.9 % (0.0-0.7); IMMATURE GRANULOCYTE COUNT 0.1 K/uL; INSTRUMENT ABS NEUTROPHIL CT 11.2 K/uL; LYMPHOCYTE COUNT 0.9 K/uL (1.0-2.8); MCH 30.4 PG (29.0-34.0); MCHC 32.2 G/DL (30.0-36.0); MCV 94.6 FL (83-99); MEAN PLAT.VOLUME 9.1 uM^3 (9.5-12.4); MONOCYTE (%) 3.9 % (3-12); MONOCYTE COUNT 0.5 K/uL (0-0.8); NEUTROPHIL (%) 86.9 % (45-76); NEUTROPHIL COUNT 11.2 K/uL (1.8-6.4); PLATELET COUNT 434 K/uL (156-360); RBC DIS.WIDTH-CV 12.4 % (11.8-14.6); RBC DIS.WIDTH-SD 42.7 % (39-53); RED BLOOD COUNT 3.91 M/uL (3.80-5.20); WHITE BLOOD COUNT 12.9 K/uL (4.1-10.2)
[2017-01-08 16:43] LABS: CHLORIDE 97 mEq/L (99-109); POTASSIUM 4.9 mEq/L (3.7-5.4); SODIUM 136 mEq/L (136-147)
[2017-01-08 16:45] LABS: GLUCOSE 153 mg/dL (70-99)
[2017-01-08 16:47] LABS: ANION GAP 8 MEQ/L (2-14); TOTAL BILIRUBIN 0.2 mg/dL (0.0-1.0)
[2017-01-08 16:49] LABS: ALKALINE PHOSPHATASE 70 IU/L (3-129); GFR ESTIMATE (CALCULATED) > 59 mL/min/
[2017-01-08 16:50] LABS: UREA NITROGEN (BUN) 16 mg/dL (9-23)
[2017-01-08 16:56] LABS: TROP-I INTERPRETATION NEGATIVE; TROPONIN-I < 0.01 ng/mL (0.0-0.30)
[2017-01-08 21:00] VITALS: BP 127/94
== END 2017-01-08 21:56 | disposition home or self-care (01) ==
LOC: EME 15:14
PROVIDERS: Emergency Medicine
DX: E86.0 Dehydration (principal); Z99.81 Dependence on supplemental oxygen; Z87.891 Personal history of nicotine dependence
CPT/HCPCS: 71010; 80053; 81003; 83605; 84484; 85025; 87040; 87801; 93005; J7030

== ENCOUNTER 2017-02-23 16:26 | Inpatient (IN) | payer OTHER ==
[~2017-02-23] VITALS: Ht 167.6 cm; Wt 83.2 kg
[2017-02-23] VITALS (7 sets, daily range): BP systolic 113–157; BP diastolic 68–104
[2017-02-23 16:40] LABS: BASOPHIL COUNT 0.1 K/uL (0-0.1); EOSINOPHIL (%) 1.2 % (0-5); EOSINOPHIL COUNT 0.2 K/uL (0-0.3); HEMATOCRIT 37.6 % (36.0-46.0); IMMATURE GRANULOCYTE (%) 0.4 % (0.0-0.7); IMMATURE GRANULOCYTE COUNT 0.1 K/uL; INSTRUMENT ABS NEUTROPHIL CT 8.5 K/uL; LYMPHOCYTE COUNT 2.3 K/uL (1.0-2.8); MCH 30.4 PG (29.0-34.0); MCHC 33.5 G/DL (30.0-36.0); MCV 90.6 FL (83-99); MEAN PLAT.VOLUME 9.3 uM^3 (9.5-12.4); MONOCYTE (%) 9.7 % (3-12); MONOCYTE COUNT 1.2 K/uL (0-0.8); NEUTROPHIL (%) 69.4 % (45-76); NEUTROPHIL COUNT 8.5 K/uL (1.8-6.4); PLATELET COUNT 471 K/uL (156-360); RBC DIS.WIDTH-CV 12.8 % (11.8-14.6); RBC DIS.WIDTH-SD 42.2 % (39-53); RED BLOOD COUNT 4.15 M/uL (3.80-5.20); WHITE BLOOD COUNT 12.2 K/uL (4.1-10.2)
[2017-02-23 16:44] LABS: INTER. NORMALIZED RATIO 1.1; PROTHROMBIN TIME 11.7 SEC (10.2-12.9)
[2017-02-23 16:47] LABS: PTT 28.2 SEC (25-37)
[2017-02-23 16:48] LABS: AMYLASE 49 IU/L (1-118); CHLORIDE 95 mEq/L (99-109); POTASSIUM 4.1 mEq/L (3.7-5.4); SODIUM 133 mEq/L (136-147)
[2017-02-23 16:49] LABS: GLUCOSE 169 mg/dL (70-99)
[2017-02-23 16:51] LABS: ANION GAP 13 MEQ/L (2-14)
[2017-02-23 16:53] LABS: GFR ESTIMATE (CALCULATED) > 59 mL/min/; SERUM ETHYL ALCOHOL < 10 mg/dL
[2017-02-23 16:54] LABS: UREA NITROGEN (BUN) 10 mg/dL (9-23)
[2017-02-23 16:56] LABS: LIPASE 3 U/L (1.0-51.0)
[2017-02-23 17:00] LABS: TROP-I INTERPRETATION NEGATIVE; TROPONIN-I 0.22 ng/mL (0.0-0.30)
[2017-02-23 19:56] LABS: METH RESISTANT S AUREUS PCR NEGATIVE (NEGATIVE)
[2017-02-23 20:06] LABS: PROBE CHECK PASS; SPECIMEN PROCESSING CONTROL PASS
[2017-02-24] VITALS (18 sets, daily range): BP systolic 103–143; BP diastolic 60–100
[2017-02-24 00:59] LABS: TROP-I INTERPRETATION POSITIVE
[2017-02-24 01:01] LABS: TROPONIN-I 1.88 ng/mL (0.0-0.30)
[2017-02-24 05:38] LABS: BASOPHIL COUNT 0.1 K/uL (0-0.1); EOSINOPHIL (%) 2.5 % (0-5); EOSINOPHIL COUNT 0.3 K/uL (0-0.3); HEMATOCRIT 38.4 % (36.0-46.0); IMMATURE GRANULOCYTE (%) 0.3 % (0.0-0.7); INSTRUMENT ABS NEUTROPHIL CT 8.1 K/uL; LYMPHOCYTE COUNT 2.7 K/uL (1.0-2.8); MCH 31.1 PG (29.0-34.0); MCHC 33.1 G/DL (30.0-36.0); MCV 94.1 FL (83-99); MONOCYTE COUNT 1.4 K/uL (0-0.8); NEUTROPHIL (%) 64.5 % (45-76); NEUTROPHIL COUNT 8.1 K/uL (1.8-6.4); PLATELET COUNT 474 K/uL (156-360); RBC DIS.WIDTH-CV 13.2 % (11.8-14.6); RBC DIS.WIDTH-SD 45.9 % (39-53); RED BLOOD COUNT 4.08 M/uL (3.80-5.20); WHITE BLOOD COUNT 12.5 K/uL (4.1-10.2)
[2017-02-24 06:04] LABS: ANION GAP 7 MEQ/L (2-14); CHLORIDE 100 MEQ/L (99-109); GFR ESTIMATE (CALCULATED) > 59 mL/min/; GLUCOSE 109 mg/dL (70-99); POTASSIUM 4.7 MEQ/L (3.7-5.4); SAMPLE HEMOLYSIS CHECK 0; SAMPLE ICTERIC CHECK 0; SAMPLE LIPEMIA CHECK 0; SODIUM 138 MEQ/L (136-147); UREA NITROGEN (BUN) 10 mg/dL (9-23)
[2017-02-24 06:40] LABS: TROP-I INTERPRETATION POSITIVE; TROPONIN-I 1.89 ng/mL (0.0-0.30)
[2017-02-24 12:45] LABS: TROP-I INTERPRETATION POSITIVE; TROPONIN-I 1.31 ng/mL (0.0-0.30)
[2017-02-25 04:06] VITALS: BP 110/70
[2017-02-25 08:59] VITALS: BP 102/71
[2017-02-25 11:23] VITALS: BP 110/77
[2017-02-25 15:03] VITALS: BP 117/82
[2017-02-25 19:38] VITALS: BP 103/69
[2017-02-25 23:22] VITALS: BP 111/75
[2017-02-26 04:46] VITALS: BP 119/77
[2017-02-26 07:37] LABS: ANION GAP 6 MEQ/L (2-14); CHLORIDE 94 MEQ/L (99-109); GFR ESTIMATE (CALCULATED) > 59 mL/min/; GLUCOSE 133 mg/dL (70-99); POTASSIUM 4.7 MEQ/L (3.7-5.4); SAMPLE HEMOLYSIS CHECK 0; SAMPLE ICTERIC CHECK 0; SAMPLE LIPEMIA CHECK 0; SODIUM 135 MEQ/L (136-147); UREA NITROGEN (BUN) 7 mg/dL (9-23)
[2017-02-26 07:45] VITALS: BP 110/69
[2017-02-26 12:00] VITALS: BP 124/84
[2017-02-26 15:15] VITALS: BP 106/69
[2017-02-26 19:19] VITALS: BP 121/87
[2017-02-26 23:18] VITALS: BP 126/81
[2017-02-27 03:54] VITALS: BP 121/89
[2017-02-27 05:36] LABS: ANION GAP 14 MEQ/L (2-14); CHLORIDE 93 MEQ/L (99-109); GFR ESTIMATE (CALCULATED) > 59 mL/min/; GLUCOSE 104 mg/dL (70-99); POTASSIUM 4.8 MEQ/L (3.7-5.4); SAMPLE HEMOLYSIS CHECK 0; SAMPLE ICTERIC CHECK 0; SAMPLE LIPEMIA CHECK 0; SODIUM 133 MEQ/L (136-147); UREA NITROGEN (BUN) 7 mg/dL (9-23)
[2017-02-27 08:21] VITALS: BP 124/64
[2017-02-27 11:38] VITALS: BP 111/76
[2017-02-27 16:58] VITALS: BP 102/60
[2017-02-27 19:27] VITALS: BP 100/60
[2017-02-27 23:04] VITALS: BP 106/63
[2017-02-28 04:55] VITALS: BP 121/76
[2017-02-28 08:26] VITALS: BP 139/87
[2017-02-28 10:30] VITALS: BP 111/68
[2017-02-28] MEDS ORDERED: PROPRANOLOL HCL20 MG PO (11:45)
[2017-02-28] MEDS ORDERED: DICYCLOMINE HCL10 MG PO (11:45)
[2017-02-28] MEDS ORDERED: BUTALB-APAP-CA1 EACH PO (11:45)
[2017-02-28] MEDS ORDERED: PRAVASTATIN SOD40 MG PO (11:45)
[2017-02-28] MEDS ORDERED: LISINOPRIL10 MG PO (11:45)
[2017-02-28] MEDS ORDERED: ASPIR-LOW81 MG PO (11:45)
[2017-02-28 13:22] VITALS: BP 144/67
== END 2017-02-28 15:07 | disposition home health service (06) | DRG 286 ==
LOC: EME 16:26 → 4EAST 17:24 → CATH 17:24 → EME 17:24 → 2SOUTH 18:07 → 4EAST 18:07 → 4WEST 18:07 → ENRESERV 18:09 → 4WEST 18:14 → ENRESERV 02-24 19:08 → 4EAST 02-24 21:17 → ENPENDDIS 02-28 → 4EAST 02-28 15:07
PROVIDERS: Emergency Medicine; Internal Medicine Cardiovascular Disease
DX: I51.81 Takotsubo syndrome (principal); I11.0 Hypertensive heart disease with heart failure; I50.21 Acute systolic (congestive) heart failure; I25.82 Chronic total occlusion of coronary artery; I25.119 Atherosclerotic heart disease of native coronary artery with unspecified angina pectoris; J96.11 Chronic respiratory failure with hypoxia; K22.2 Esophageal obstruction; J44.9 Chronic obstructive pulmonary disease, unspecified; K29.80 Duodenitis without bleeding; K29.70 Gastritis, unspecified, without bleeding; K44.9 Diaphragmatic hernia without obstruction or gangrene; K31.84 Gastroparesis; E78.5 Hyperlipidemia, unspecified; G43.909 Migraine, unspecified, not intractable, without status migrainosus; F41.9 Anxiety disorder, unspecified; K21.9 Gastro-esophageal reflux disease without esophagitis; K59.00 Constipation, unspecified; G89.4 Chronic pain syndrome; Z99.81 Dependence on supplemental oxygen; Z87.891 Personal history of nicotine dependence; Z87.11 Personal history of peptic ulcer disease; Z82.49 Family history of ischemic heart disease and other diseases of the circulatory system
CPT/HCPCS: 71020; 80048; 81003; 82150; 83690; 84484; 85025; 85610; 85730; 86850; 86900; 86901; 87641; 88305; 88342 TC; 93005; 93306; 94640; 94640 76; 94799; 99281; 99285; C1769; C1887; G0480; J1200; J1644; J1940; J2250; J2270; J2405; J3010; J7030

== ENCOUNTER 2017-04-07 23:02 | Emergency (ER) | payer OTHER ==
[~2017-04-07] VITALS: Ht 160 cm; Wt 79.2 kg
[~2017-04-07 23:02] MED LIST changes: +ASPIR-LOW81 MG PO; +DICYCLOMINE HCL10 MG PO; +LISINOPRIL10 MG PO; +PRAVASTATIN SOD40 MG PO
[2017-04-08 00:19] LABS: CHLORIDE 92 mEq/L (99-109); POTASSIUM 4.3 mEq/L (3.7-5.4); SODIUM 141 mEq/L (136-147)
[2017-04-08 00:21] LABS: GLUCOSE 116 mg/dL (70-99)
[2017-04-08 00:23] LABS: ANION GAP 16 MEQ/L (2-14); TOTAL BILIRUBIN 0.2 mg/dL (0.0-1.0)
[2017-04-08 00:24] LABS: HEMATOCRIT 42.6 % (36.0-46.0); MCHC 32.9 G/DL (30.0-36.0); MCV 94.2 FL (83-99); MEAN PLAT.VOLUME 10.4 uM^3 (9.5-12.4); PLATELET COUNT 325 K/uL (156-360); RBC DIS.WIDTH-CV 11.9 % (11.8-14.6); RBC DIS.WIDTH-SD 41.4 % (39-53); RED BLOOD COUNT 4.52 M/uL (3.80-5.20)
[2017-04-08 00:25] LABS: ALKALINE PHOSPHATASE 72 IU/L (3-129); GFR ESTIMATE (CALCULATED) > 59 mL/min/
[2017-04-08 00:26] LABS: UREA NITROGEN (BUN) 25 mg/dL (9-23)
[2017-04-08 00:28] LABS: CREATINE KINASE 276 IU/L (1-294); TROP-I INTERPRETATION NEGATIVE; TROPONIN-I 0.06 ng/mL (0.0-0.30)
[2017-04-08 02:14] LABS: ADD MIUA? YES; BILIRUBIN MODERATE; BLOOD NEGATIVE; COLOR AMBER ((YELLOW)); GLUCOSE (STRIP) NEGATIVE; KETONES 80; LEUKOCYTES TRACE; NITRITE NEGATIVE; PROTEIN (STRIP) 30; SPECIFIC GRAVITY 1.036 (1.000-1.030)
[2017-04-08 02:35] LABS: RED BLOOD CELLS NONE SEEN /HPF (0-5)
[2017-04-08 02:36] LABS: EPITHELIAL CELLS RARE /HPF; MUCUS 3+ /LPF
[2017-04-08 02:37] LABS: BACTERIA 1+ /HPF; CASTS PRESENT /LPF; CRYSTALS NONE SEEN; FINE GRANULAR CASTS RARE /LPF; UCUL ADDED? YES
[2017-04-08] MEDS ORDERED: KEFLEX500 MG PO (02:51)
[2017-04-08 02:58] LABS: ICTOTEST NEGATIVE
[2017-04-08 06:22] VITALS: BP 108/88
[2017-04-11] MEDS ORDERED: SPIRIVA1 INHALATI IH (07:42)
[2017-04-11] MEDS ORDERED: ADVAIR 500/501 DISK IH (07:43)
[2017-04-11] MEDS ORDERED: DULOXETINE HCL30 MG PO (07:44)
[2017-04-11] MEDS ORDERED: LEXAPRO20 MG PO (07:44)
[2017-04-11] MEDS ORDERED: PROAIR HFA8.5 GM IH (07:45)
[2017-04-11] MEDS ORDERED: DESYREL100 MG PO (07:45)
[2017-04-11] MEDS ORDERED: LISINOPRIL10 MG PO (07:46)
[2017-04-11] MEDS ORDERED: ASPIR 8181 M1 PO (07:47)
[2017-04-11] MEDS ORDERED: ANTACID PO (07:51)
== END 2017-04-08 06:23 | disposition home or self-care (01) ==
LOC: EME → EDBD 23:02 → EME 23:02
PROVIDERS: Emergency Medicine
DX: N39.0 Urinary tract infection, site not specified (principal); J44.9 Chronic obstructive pulmonary disease, unspecified; K21.9 Gastro-esophageal reflux disease without esophagitis; I10 Essential (primary) hypertension; E78.5 Hyperlipidemia, unspecified; M81.0 Age-related osteoporosis without current pathological fracture; F41.9 Anxiety disorder, unspecified; F32.9 Major depressive disorder, single episode, unspecified; Z99.81 Dependence on supplemental oxygen; Z87.891 Personal history of nicotine dependence; Z88.8 Allergy status to other drugs, medicaments and biological substances
CPT/HCPCS: 71020; 80053; 81003; 82550; 83605; 83880; 84484; 85027; 87040; 87086; 93005; 94640; 99281; 99285; J0696; J7050

== ENCOUNTER 2017-05-17 08:41 | Inpatient (IN) | payer OTHER ==
[~2017-05-17] VITALS: Ht 165.1 cm; Wt 77.1 kg
[~2017-05-17 08:41] MED LIST changes: +ANTACID PO; +ASPIR 8181 M1 PO; +DESYREL100 MG PO; +DULOXETINE HCL30 MG PO; +FIORICET 50-301 EAC1 PO; +KEFLEX500 MG PO
[2017-05-17 09:35] LABS: BASE EXCESS 13.8 mEq/L (-3 to +3); BICARBONATE 39.8 mEq/L (22-26); CARBOXY HGB 1.6 % (0-5); COMMENTS - BLOOD GASES A+C+; DEVICE NC; METHEMOGLOBIN 1.5 % (0-1.5); O2 FLOW 2 L/MIN; PCO2 56 mm Hg (35-45); PO2 69 mm Hg (80-100); SITE LR; TOTAL RESP RATE 20 resp/min; pH 7.46 (7.35-7.45)
[2017-05-17 10:07] LABS: BASOPHIL COUNT 0.1 K/uL (0-0.1); EOSINOPHIL (%) 2.4 % (0-5); EOSINOPHIL COUNT 0.2 K/uL (0-0.3); HEMATOCRIT 36.9 % (36.0-46.0); IMMATURE GRANULOCYTE (%) 0.3 % (0.0-0.7); INSTRUMENT ABS NEUTROPHIL CT 5.8 K/uL; MCH 30.4 PG (29.0-34.0); MCHC 32.2 G/DL (30.0-36.0); MCV 94.4 FL (83-99); MEAN PLAT.VOLUME 10.2 uM^3 (9.5-12.4); MONOCYTE (%) 10.6 % (3-12); NEUTROPHIL (%) 64.1 % (45-76); NEUTROPHIL COUNT 5.8 K/uL (1.8-6.4); PLATELET COUNT 299 K/uL (156-360); RBC DIS.WIDTH-CV 11.5 % (11.8-14.6); RBC DIS.WIDTH-SD 39.3 % (39-53); RED BLOOD COUNT 3.91 M/uL (3.80-5.20); WHITE BLOOD COUNT 9.1 K/uL (4.1-10.2)
[2017-05-17 10:19] LABS: CHLORIDE 91 mEq/L (99-109); POTASSIUM 4.1 mEq/L (3.7-5.4); SODIUM 136 mEq/L (136-147)
[2017-05-17 10:21] LABS: GLUCOSE 118 mg/dL (70-99)
[2017-05-17 10:22] LABS: ANION GAP 10 MEQ/L (2-14)
[2017-05-17 10:23] LABS: TOTAL BILIRUBIN 0.3 mg/dL (0.0-1.0)
[2017-05-17 10:24] LABS: ALKALINE PHOSPHATASE 53 IU/L (3-129)
[2017-05-17 10:25] LABS: GFR ESTIMATE (CALCULATED) > 59 mL/min/
[2017-05-17 10:26] LABS: UREA NITROGEN (BUN) 15 mg/dL (9-23)
[2017-05-17 13:47] LABS: TROP-I INTERPRETATION NEGATIVE; TROPONIN-I < 0.01 ng/mL (0.0-0.30)
[2017-05-17 22:40] VITALS: BP 139/93
[2017-05-17 23:30] VITALS: BP 125/81
[2017-05-18 03:34] VITALS: BP 109/65
[2017-05-18 08:23] VITALS: BP 127/78
[2017-05-18] MEDS ORDERED: ATORVASTATIN CA40 MG PO (12:08)
[2017-05-18] MEDS ORDERED: CLONAZEPAM1 MG PO ×2 (12:10→12:15)
[2017-05-18] MEDS ORDERED: PRAMIPEXOLE0.125 MG PO (12:11)
[2017-05-18] MEDS ORDERED: SPIRIVA1 INHALATI IH (12:11)
[2017-05-18] MEDS ORDERED: ZOLPIDEM TARTRA10 MG PO (12:11)
[2017-05-18] MEDS ORDERED: DEPAKOTE250 MG PO (12:11)
[2017-05-18] MEDS ORDERED: TRAZODONE HCL100 MG PO (12:12)
[2017-05-18] MEDS ORDERED: LISINOPRIL20 MG PO (12:12)
[2017-05-18 13:12] VITALS: BP 120/70
[2017-05-18 16:56] VITALS: BP 151/66
[2017-05-18 20:00] VITALS: BP 163/99
[2017-05-18 23:47] VITALS: BP 156/93
[2017-05-19 04:00] VITALS: BP 122/74
[2017-05-19 07:00] VITALS: BP 160/100
[2017-05-19 09:15] VITALS: BP 151/97
[2017-05-19 10:38] LABS: EOSINOPHIL (%) 0.2 % (0-5); HEMATOCRIT 36.6 % (36.0-46.0); IMMATURE GRANULOCYTE (%) 0.8 % (0.0-0.7); IMMATURE GRANULOCYTE COUNT 0.1 K/uL; INSTRUMENT ABS NEUTROPHIL CT 14.7 K/uL; LYMPHOCYTE COUNT 1.2 K/uL (1.0-2.8); MCH 30.9 PG (29.0-34.0); MCHC 33.1 G/DL (30.0-36.0); MCV 93.4 FL (83-99); MEAN PLAT.VOLUME 10.6 uM^3 (9.5-12.4); MONOCYTE (%) 5.6 % (3-12); NEUTROPHIL (%) 86.3 % (45-76); NEUTROPHIL COUNT 14.7 K/uL (1.8-6.4); PLATELET COUNT 323 K/uL (156-360); RBC DIS.WIDTH-CV 11.9 % (11.8-14.6); RBC DIS.WIDTH-SD 40.4 % (39-53); RED BLOOD COUNT 3.92 M/uL (3.80-5.20); WHITE BLOOD COUNT 17.1 K/uL (4.1-10.2)
[2017-05-19 11:01] LABS: GFR ESTIMATE (CALCULATED) > 59 mL/min/; MAGNESIUM 1.7 mg/dl (1.3-2.7); SAMPLE HEMOLYSIS CHECK 0; SAMPLE ICTERIC CHECK 0; SAMPLE LIPEMIA CHECK 0; UREA NITROGEN (BUN) 17 mg/dL (9-23)
[2017-05-19 11:11] LABS: GLUCOSE 191 mg/dL (70-99)
[2017-05-19 11:13] LABS: ANION GAP 9 MEQ/L (2-14); CHLORIDE 96 MEQ/L (99-109); POTASSIUM 4.3 MEQ/L (3.7-5.4); SODIUM 138 MEQ/L (136-147)
[2017-05-19 12:16] VITALS: BP 130/80
[2017-05-19 13:01] LABS: BICARBONATE 39.8 mEq/L (22-26); CARBOXY HGB 1.8 % (0-5); COMMENTS - BLOOD GASES A+C+; DEVICE NC; MECHANICAL RATE 24 resp/min; METHEMOGLOBIN 1.8 % (0-1.5); O2 FLOW 2 L/MIN; PCO2 60 mm Hg (35-45); PO2 74 mm Hg (80-100); SITE RR; pH 7.43 (7.35-7.45)
[2017-05-19 14:19] LABS: POINT-OF-CARE METER ID UU14162508
[2017-05-19 15:47] VITALS: BP 125/75
[2017-05-19 19:25] VITALS: BP 125/81
[2017-05-20 00:15] VITALS: BP 118/76
[2017-05-20 04:02] VITALS: BP 101/61
[2017-05-20 06:49] LABS: POINT-OF-CARE METER ID UU14162508
[2017-05-20 07:56] LABS: Estimated Average Glucose 151 mg/dL (70-123); HEMOGLOBIN A1c (GLYCOHEMOGLOB) 6.9 % HGB (Below 5.7)
[2017-05-20 08:16] VITALS: BP 124/82
[2017-05-20] MEDS ORDERED: PROTONIX40 MG PO (11:35)
[2017-05-20] MEDS ORDERED: PREDNISONE20 MG PO (11:35)
[2017-05-20] MEDS ORDERED: PROPRANOLOL HCL20 MG PO (11:35)
[2017-05-20] MEDS ORDERED: ADVAIR 250/501 DISK IH (11:35)
[2017-05-20] MEDS ORDERED: AUGMENTIN875 MG PO (11:47)
[2017-05-20] MEDS ORDERED: AZITHROMYCIN250 MG1 PO (11:47)
[2017-05-20 12:18] LABS: POINT-OF-CARE METER ID UU14162508
[2017-05-20 14:12] LABS: POINT-OF-CARE METER ID UU14162508
== END 2017-05-20 14:58 | disposition home health service (06) | DRG 191 ==
LOC: EME 08:41 → EDOF 14:33 → 2EAST 14:33 → ENRESERV 14:48 → 2EAST 22:19
PROVIDERS: Internal Medicine; Physician Assistant
DX: J44.1 Chronic obstructive pulmonary disease with (acute) exacerbation (principal); J96.11 Chronic respiratory failure with hypoxia; E87.2 Acidosis; R00.0 Tachycardia, unspecified; T48.6X5A Adverse effect of antiasthmatics, initial encounter; E11.9 Type 2 diabetes mellitus without complications; I11.9 Hypertensive heart disease without heart failure; K21.9 Gastro-esophageal reflux disease without esophagitis; E78.5 Hyperlipidemia, unspecified; F41.9 Anxiety disorder, unspecified; F32.9 Major depressive disorder, single episode, unspecified; K29.70 Gastritis, unspecified, without bleeding; Z99.81 Dependence on supplemental oxygen; Z87.11 Personal history of peptic ulcer disease; Z87.891 Personal history of nicotine dependence
CPT/HCPCS: 36600; 71020; 80048; 80053; 82803; 82948; 83036; 83605; 83735; 83880; 84484; 85025; 87502; 93005; 94640; 94640 76; 94644; 94760; 94799; 99202; 99281; 99285; J1650; J1815; J2920; J2930; J7120; J7644

== ENCOUNTER 2017-11-23 12:18 | Emergency (ER) | payer OTHER ==
[~2017-11-23] VITALS: Ht 167.6 cm; Wt 81.1 kg
[~2017-11-23 12:18] MED LIST changes: +ATORVASTATIN CA40 MG PO; +AUGMENTIN875 MG PO; +AZITHROMYCIN250 MG1 PO; +DEPAKOTE250 MG PO; +PRAMIPEXOLE0.125 MG PO; +PREDNISONE20 MG PO; +TRAZODONE HCL100 MG PO; +ZOLPIDEM TARTRA10 MG PO
[2017-11-23 13:08] LABS: HEMATOCRIT 38.3 % (36.0-46.0); HEMOGLOBIN 12.5 G/DL (11.9-15.5); MCH 30.4 PG (29.0-34.0); MCHC 32.6 G/DL (30.0-36.0); MCV 93.2 FL (83-99); PLATELET COUNT 434 K/uL (156-360); RBC DIS.WIDTH-CV 12.4 % (11.8-14.6); RBC DIS.WIDTH-SD 42.5 % (39-53); RED BLOOD COUNT 4.11 M/uL (3.80-5.20); WHITE BLOOD COUNT 10.7 K/uL (4.1-10.2)
[2017-11-23 13:18] LABS: CHLORIDE 93 mEq/L (99-109); POTASSIUM 4.7 mEq/L (3.7-5.4); SODIUM 139 mEq/L (136-147)
[2017-11-23 13:20] LABS: GLUCOSE 116 mg/dL (70-99); TOTAL PROTEIN 6.6 g/dL (6.4-8.3)
[2017-11-23 13:22] LABS: TOTAL BILIRUBIN 0.2 mg/dL (0.0-1.0)
[2017-11-23 13:24] LABS: ALKALINE PHOSPHATASE 115 IU/L (3-129); CREATININE 0.7 mg/dL (0.6-1.3); GFR ESTIMATE (CALCULATED) > 59 mL/min/
[2017-11-23 13:25] LABS: UREA NITROGEN (BUN) 10 mg/dL (9-23)
[2017-11-23 13:26] LABS: AST (GOT) 32 IU/L (2-34)
[2017-11-23 13:27] LABS: ALT (GPT) 24 IU/L (3-49)
[2017-11-23 13:30] LABS: TROP-I INTERPRETATION NEGATIVE; TROPONIN-I < 0.01 ng/mL (0.0-0.30)
[2017-11-23 17:09] VITALS: BP 143/118
[2017-12-11] MEDS ORDERED: CYMBALTA60 MG PO (19:24)
[2017-12-11] MEDS ORDERED: ZOFRAN4 MG PO (19:28)
[2017-12-18] MEDS ORDERED: XOPENEX1.25 MG/3 IH (13:04)
== END 2017-11-23 17:09 | disposition home or self-care (01) ==
LOC: EME 12:18
PROVIDERS: Emergency Medicine Emergency Medical Services
DX: G43.909 Migraine, unspecified, not intractable, without status migrainosus (principal); R11.0 Nausea; M54.5 Low back pain; R05 Cough; R91.8 Other nonspecific abnormal finding of lung field; I10 Essential (primary) hypertension; E78.5 Hyperlipidemia, unspecified; F32.9 Major depressive disorder, single episode, unspecified; F41.9 Anxiety disorder, unspecified; J45.909 Unspecified asthma, uncomplicated; K21.9 Gastro-esophageal reflux disease without esophagitis; M81.0 Age-related osteoporosis without current pathological fracture; Z99.81 Dependence on supplemental oxygen; Z88.6 Allergy status to analgesic agent; Z88.5 Allergy status to narcotic agent; Z87.891 Personal history of nicotine dependence
CPT/HCPCS: 71045; 80053; 84484; 85027; 94640; 99281; 99284; J0780; J3010

== ENCOUNTER 2017-12-11 16:19 | Observation (INO) | payer OTHER ==
[~2017-12-11] VITALS: Ht 167.6 cm; Wt 82.2 kg
[2017-12-11 16:57] LABS: BASOPHIL (%) 0.6 % (0-1); BASOPHIL COUNT 0.1 K/uL (0-0.1); EOSINOPHIL (%) 2.6 % (0-5); EOSINOPHIL COUNT 0.3 K/uL (0-0.3); HEMATOCRIT 36.3 % (36.0-46.0); IMMATURE GRANULOCYTE (%) 0.4 % (0.0-0.7); LYMPHOCYTE (%) 18.6 % (15-42); LYMPHOCYTE COUNT 1.9 K/uL (1.0-2.8); MCH 30.5 PG (29.0-34.0); MCHC 33.1 G/DL (30.0-36.0); MCV 92.1 FL (83-99); MONOCYTE (%) 8.1 % (3-12); MONOCYTE COUNT 0.8 K/uL (0-0.8); NEUTROPHIL (%) 69.7 % (45-76); NEUTROPHIL COUNT 7.1 K/uL (1.8-6.4); PLATELET COUNT 463 K/uL (156-360); RBC DIS.WIDTH-CV 12.2 % (11.8-14.6); RBC DIS.WIDTH-SD 41.8 % (39-53); RED BLOOD COUNT 3.94 M/uL (3.80-5.20); WHITE BLOOD COUNT 10.2 K/uL (4.1-10.2)
[2017-12-11 17:05] LABS: CHLORIDE 94 mEq/L (99-109); D-DIMER ELISA < 150.00 ng/mLDDU (<230); POTASSIUM 4.1 mEq/L (3.7-5.4); SODIUM 136 mEq/L (136-147)
[2017-12-11 17:07] LABS: GLUCOSE 124 mg/dL (70-99); TOTAL PROTEIN 6.3 g/dL (6.4-8.3)
[2017-12-11 17:09] LABS: TOTAL BILIRUBIN 0.1 mg/dL (0.0-1.0)
[2017-12-11 17:11] LABS: ALKALINE PHOSPHATASE 89 IU/L (3-129); CREATININE 0.7 mg/dL (0.6-1.3); GFR ESTIMATE (CALCULATED) > 59 mL/min/
[2017-12-11 17:12] LABS: UREA NITROGEN (BUN) 9 mg/dL (9-23)
[2017-12-11 17:13] LABS: AST (GOT) 31 IU/L (2-34)
[2017-12-11 17:14] LABS: ALT (GPT) 28 IU/L (3-49)
[2017-12-11 17:17] LABS: TROP-I INTERPRETATION NEGATIVE; TROPONIN-I 0.01 ng/mL (0.0-0.30)
[2017-12-11] MEDS ORDERED: LOW DOSE ASPIRI81 M1 PO (19:22)
[2017-12-11] MEDS ORDERED: CARAFATE1 GM PO (19:23)
[2017-12-11] MEDS ORDERED: REGLAN10 MG PO (19:23)
[2017-12-11] MEDS ORDERED: CYMBALTA30 MG PO (19:24)
[2017-12-11] MEDS ORDERED: FIORICET 50-301 EAC1 PO (19:25)
[2017-12-11] MEDS ORDERED: DUONEB 2.5-0.5 M3 ML AEROSOL (19:26)
[2017-12-11] MEDS ORDERED: ADULTS' DAILY1 EAC1 PO (19:26)
[2017-12-11] MEDS ORDERED: LASIX20 MG PO (19:27)
[2017-12-11] MEDS ORDERED: ZUPLENZ4 MG PO (19:28)
[2017-12-11] MEDS ORDERED: LEVAQUIN500 MG PO (19:29)
[2017-12-11] MEDS ORDERED: SENNA PLUS TAB1 EACH PO (19:29)
[2017-12-11 21:07] LABS: LIPASE 35 U/L (1.0-51.0)
[2017-12-11 21:56] VITALS: BP 138/96
[2017-12-11 23:31] LABS: TROP-I INTERPRETATION NEGATIVE; TROPONIN-I 0.01 ng/mL (0.0-0.30)
[2017-12-12 00:19] VITALS: BP 119/70
[2017-12-12 05:23] LABS: TROP-I INTERPRETATION NEGATIVE; TROPONIN-I < 0.01 ng/mL (0.0-0.30)
[2017-12-12 06:29] LABS: BENZODIAZEPINES, URINE SCREEN Negative (200 ng/mL)
[2017-12-12 09:29] VITALS: BP 122/75
[2017-12-12] MEDS ORDERED: PREDNISONE10 MG PO (09:45)
[2017-12-12 12:09] VITALS: BP 168/109
[2017-12-12 15:17] VITALS: BP 118/70
== END 2017-12-12 15:17 | disposition home or self-care (01) ==
LOC: EME 16:19 → EDOF 19:59 → 4SOUTH 19:59 → ENRESERV 20:02 → 4SOUTH 21:40 → ENPENDDIS 12-12 11:28 → 4SOUTH 12-12 15:17
PROVIDERS: Emergency Medicine; Hospitalist
DX: R07.89 Other chest pain (principal); J96.11 Chronic respiratory failure with hypoxia; J44.1 Chronic obstructive pulmonary disease with (acute) exacerbation; Z99.81 Dependence on supplemental oxygen; I11.9 Hypertensive heart disease without heart failure; E78.5 Hyperlipidemia, unspecified; I25.10 Atherosclerotic heart disease of native coronary artery without angina pectoris; K21.9 Gastro-esophageal reflux disease without esophagitis; R00.0 Tachycardia, unspecified; F32.9 Major depressive disorder, single episode, unspecified; F41.9 Anxiety disorder, unspecified; Z87.891 Personal history of nicotine dependence; Z82.49 Family history of ischemic heart disease and other diseases of the circulatory system; Z88.6 Allergy status to analgesic agent; Z88.5 Allergy status to narcotic agent
CPT/HCPCS: 71046; 71275; 80053; 80306 90; 83605; 83690; 84443; 84484; 85025; 85379; 93005; 94640; 94799; 99281; 99285; G0378; J0780; J1200; J1650; J2060; J2930; J7040

== ENCOUNTER 2017-12-13 04:25 | Inpatient (IN) | payer OTHER ==
[~2017-12-13] VITALS: Ht 167.6 cm; Wt 83.6 kg
[2017-12-13] VITALS (12 sets, daily range): BP systolic 113–188; BP diastolic 69–116
[~2017-12-13 04:25] MED LIST changes: +ADULTS' DAILY1 EAC1 PO; +CARAFATE1 GM PO; +CYMBALTA30 MG PO; +LASIX20 MG PO; +LEVAQUIN500 MG PO; +LOW DOSE ASPIRI81 M1 PO; +REGLAN10 MG PO; +SENNA PLUS TAB1 EACH PO; +ZUPLENZ4 MG PO
[2017-12-13 05:19] LABS: HEMATOCRIT 34.6 % (36.0-46.0); HEMOGLOBIN 11.4 G/DL (11.9-15.5); MCH 30.8 PG (29.0-34.0); MCHC 32.9 G/DL (30.0-36.0); MCV 93.5 FL (83-99); PLATELET COUNT 486 K/uL (156-360); RBC DIS.WIDTH-CV 12.4 % (11.8-14.6); RBC DIS.WIDTH-SD 42.4 % (39-53); WHITE BLOOD COUNT 17.3 K/uL (4.1-10.2)
[2017-12-13 05:47] LABS: CHLORIDE 95 mEq/L (99-109); POTASSIUM 4.8 mEq/L (3.7-5.4); SODIUM 137 mEq/L (136-147)
[2017-12-13 05:49] LABS: TOTAL PROTEIN 6.5 g/dL (6.4-8.3)
[2017-12-13 05:50] LABS: GLUCOSE 188 mg/dL (70-99)
[2017-12-13 05:51] LABS: TOTAL BILIRUBIN 0.1 mg/dL (0.0-1.0)
[2017-12-13 05:52] LABS: ALKALINE PHOSPHATASE 103 IU/L (3-129)
[2017-12-13 05:53] LABS: CREATININE 0.7 mg/dL (0.6-1.3); GFR ESTIMATE (CALCULATED) > 59 mL/min/
[2017-12-13 05:54] LABS: AST (GOT) 35 IU/L (2-34); UREA NITROGEN (BUN) 13 mg/dL (9-23)
[2017-12-13 05:56] LABS: ALT (GPT) 31 IU/L (3-49); LIPASE 9 U/L (1.0-51.0)
[2017-12-13 06:02] LABS: TROP-I INTERPRETATION NEGATIVE; TROPONIN-I 0.02 ng/mL (0.0-0.30)
[2017-12-13 06:31] LABS: APPEARANCE CLEAR ((CLEAR)); BILIRUBIN NEGATIVE; BLOOD NEGATIVE; COLOR COLORLESS ((YELLOW)); GLUCOSE (STRIP) NEGATIVE; KETONES NEGATIVE; LEUKOCYTES NEGATIVE; NITRITE NEGATIVE; PROTEIN (STRIP) NEGATIVE; SPECIFIC GRAVITY 1.006 (1.000-1.030); UCUL ADDED? NO; UROBILINOGEN 0.2 MG/DL (0.2-1.0)
[2017-12-13 12:54] LABS: TROP-I INTERPRETATION NEGATIVE; TROPONIN-I 0.01 ng/mL (0.0-0.30)
[2017-12-13 15:33] LABS: HEMATOCRIT 36.8 % (36.0-46.0); HEMOGLOBIN 11.9 G/DL (11.9-15.5); MCH 30.5 PG (29.0-34.0); MCHC 32.3 G/DL (30.0-36.0); MCV 94.4 FL (83-99); PLATELET COUNT 584 K/uL (156-360); RBC DIS.WIDTH-CV 12.7 % (11.8-14.6); RBC DIS.WIDTH-SD 43.7 % (39-53); WHITE BLOOD COUNT 17.5 K/uL (4.1-10.2)
[2017-12-13 15:42] LABS: CHLORIDE 97 MEQ/L (99-109); MAGNESIUM 1.6 mg/dl (1.3-2.7); POTASSIUM 4.7 MEQ/L (3.7-5.4); SODIUM 137 MEQ/L (136-147)
[2017-12-13 15:47] LABS: CREATININE 0.6 MG/DL (0.6-1.3); GFR ESTIMATE (CALCULATED) > 59 mL/min/; GLUCOSE 137 mg/dL (70-99); TROP-I INTERPRETATION NEGATIVE; TROPONIN-I 0.01 ng/mL (0.0-0.30); UREA NITROGEN (BUN) 12 mg/dL (9-23)
[2017-12-13 22:57] LABS: BENZODIAZEPINES, URINE SCREEN Negative (200 ng/mL)
[2017-12-14 03:50] VITALS: BP 166/89
[2017-12-14 05:09] VITALS: BP 137/89
[2017-12-14 05:37] LABS: HEMATOCRIT 37.3 % (36.0-46.0); HEMOGLOBIN 11.8 G/DL (11.9-15.5); MCH 29.7 PG (29.0-34.0); MCHC 31.6 G/DL (30.0-36.0); PLATELET COUNT 527 K/uL (156-360); RBC DIS.WIDTH-CV 12.5 % (11.8-14.6); RBC DIS.WIDTH-SD 43.7 % (39-53); RED BLOOD COUNT 3.97 M/uL (3.80-5.20); WHITE BLOOD COUNT 13.3 K/uL (4.1-10.2)
[2017-12-14 06:10] LABS: CHLORIDE 96 MEQ/L (99-109); CREATININE 0.5 MG/DL (0.6-1.3); GFR ESTIMATE (CALCULATED) > 59 mL/min/; GLUCOSE 171 mg/dL (70-99); POTASSIUM 4.7 MEQ/L (3.7-5.4); SODIUM 137 MEQ/L (136-147); UREA NITROGEN (BUN) 9 mg/dL (9-23)
[2017-12-14 08:15] VITALS: BP 133/80
[2017-12-14 11:37] VITALS: BP 170/110
[2017-12-14 16:11] VITALS: BP 153/118
[2017-12-14 19:17] VITALS: BP 156/95
[2017-12-15] VITALS (8 sets, daily range): BP systolic 105–176; BP diastolic 63–109
[2017-12-15 05:50] LABS: BASOPHIL (%) 0.2 % (0-1); EOSINOPHIL (%) 0.1 % (0-5); HEMOGLOBIN 11.3 G/DL (11.9-15.5); IMMATURE GRANULOCYTE (%) 0.7 % (0.0-0.7); LYMPHOCYTE (%) 10.1 % (15-42); LYMPHOCYTE COUNT 1.3 K/uL (1.0-2.8); MCH 30.1 PG (29.0-34.0); MCHC 32.3 G/DL (30.0-36.0); MCV 93.3 FL (83-99); MONOCYTE (%) 4.8 % (3-12); MONOCYTE COUNT 0.6 K/uL (0-0.8); NEUTROPHIL (%) 84.1 % (45-76); NEUTROPHIL COUNT 10.6 K/uL (1.8-6.4); PLATELET COUNT 511 K/uL (156-360); RBC DIS.WIDTH-CV 12.3 % (11.8-14.6); RBC DIS.WIDTH-SD 42.6 % (39-53); RED BLOOD COUNT 3.75 M/uL (3.80-5.20); WHITE BLOOD COUNT 12.6 K/uL (4.1-10.2)
[2017-12-15 06:20] LABS: CHLORIDE 93 MEQ/L (99-109); CREATININE 0.5 MG/DL (0.6-1.3); GFR ESTIMATE (CALCULATED) > 59 mL/min/; GLUCOSE 150 mg/dL (70-99); POTASSIUM 4.3 MEQ/L (3.7-5.4); SODIUM 132 MEQ/L (136-147); UREA NITROGEN (BUN) 7 mg/dL (9-23)
[2017-12-16 04:00] VITALS: BP 133/85
[2017-12-16 05:29] LABS: BASOPHIL (%) 0.1 % (0-1); EOSINOPHIL (%) 0 % (0-5); HEMATOCRIT 35.6 % (36.0-46.0); HEMOGLOBIN 11.5 G/DL (11.9-15.5); IMMATURE GRANULOCYTE (%) 0.5 % (0.0-0.7); LYMPHOCYTE (%) 9.3 % (15-42); LYMPHOCYTE COUNT 1.1 K/uL (1.0-2.8); MCH 29.9 PG (29.0-34.0); MCHC 32.3 G/DL (30.0-36.0); MCV 92.7 FL (83-99); MONOCYTE (%) 2.6 % (3-12); MONOCYTE COUNT 0.3 K/uL (0-0.8); NEUTROPHIL (%) 87.5 % (45-76); NEUTROPHIL COUNT 10.3 K/uL (1.8-6.4); RBC DIS.WIDTH-CV 12.2 % (11.8-14.6); RBC DIS.WIDTH-SD 41.6 % (39-53); RED BLOOD COUNT 3.84 M/uL (3.80-5.20); WHITE BLOOD COUNT 11.8 K/uL (4.1-10.2)
[2017-12-16 05:52] LABS: CHLORIDE 93 MEQ/L (99-109); CREATININE 0.6 MG/DL (0.6-1.3); GFR ESTIMATE (CALCULATED) > 59 mL/min/; GLUCOSE 171 mg/dL (70-99); POTASSIUM 4.3 MEQ/L (3.7-5.4); SODIUM 134 MEQ/L (136-147); UREA NITROGEN (BUN) 9 mg/dL (9-23)
[2017-12-16 06:09] LABS: PLAT.SUFFICIENCY ADEQUATE; PLATELET COUNT 423 K/uL (156-360)
[2017-12-16 07:55] VITALS: BP 153/95
[2017-12-16 08:42] VITALS: BP 153/95
[2017-12-16] MEDS ORDERED: XOPENEX1.25 MG/0. AEROSOL (12:26)
[2017-12-16] MEDS ORDERED: LOPRESSOR25 MG PO (12:27)
[2017-12-18] MEDS ORDERED: XOPENEX1.25 MG/3 IH (13:04)
== END 2017-12-16 15:51 | disposition home or self-care (01) | DRG 384 ==
LOC: EME 04:25 → 4SOUTH 07:47 → EDOF 07:47 → ENRESERV 07:49 → 4SOUTH 09:25
PROVIDERS: Emergency Medicine; Internal Medicine; Internal Medicine Gastroenterology
PROC: 0DB68ZX Excision of Stomach, Via Natural or Artificial Opening Endoscopic, Diagnostic (ICD-10-PCS; principal; 2017-12-14)
DX: K25.7 Chronic gastric ulcer without hemorrhage or perforation (principal); J44.1 Chronic obstructive pulmonary disease with (acute) exacerbation; Z99.81 Dependence on supplemental oxygen; J96.10 Chronic respiratory failure, unspecified whether with hypoxia or hypercapnia; I51.81 Takotsubo syndrome; I11.9 Hypertensive heart disease without heart failure; K21.9 Gastro-esophageal reflux disease without esophagitis; E78.5 Hyperlipidemia, unspecified; Z87.891 Personal history of nicotine dependence; K31.84 Gastroparesis; I25.10 Atherosclerotic heart disease of native coronary artery without angina pectoris; F41.9 Anxiety disorder, unspecified; F32.9 Major depressive disorder, single episode, unspecified; M19.90 Unspecified osteoarthritis, unspecified site; D64.9 Anemia, unspecified; G89.4 Chronic pain syndrome; G43.909 Migraine, unspecified, not intractable, without status migrainosus
CPT/HCPCS: 71045; 71046; 71275; 74177; 80048; 80048 91; 80053; 80306 90; 81003; 82803; 83605; 83690; 83735; 84443; 84484; 85025; 85027; 85379; 86850; 86900; 86901; 87040; 87641; 88305; 88342 TC; 93005; 94640; 94799; 99281; 99285; C9113; G0378; J0360; J0780; J1170; J1200; J1644; J1650; J1956; J2060; J2405; J2765; J2920; J2930; J3010; J7030; J7040; S0028

== ENCOUNTER 2017-12-17 16:13 | Emergency (ER) | payer OTHER ==
[~2017-12-17] VITALS: Ht 167.6 cm; Wt 86.1 kg
[~2017-12-17 16:13] MED LIST changes: +LOPRESSOR25 MG PO; +XOPENEX1.25 MG/0. AEROSOL
[2017-12-17 22:22] VITALS: BP 146/123
[2017-12-18] MEDS ORDERED: XOPENEX1.25 MG/3 IH (13:04)
== END 2017-12-17 22:26 | disposition home or self-care (01) ==
LOC: EME 16:13
DX: Z76.0 Encounter for issue of repeat prescription (principal); J44.9 Chronic obstructive pulmonary disease, unspecified; F41.9 Anxiety disorder, unspecified; Z99.81 Dependence on supplemental oxygen; E78.5 Hyperlipidemia, unspecified; K21.9 Gastro-esophageal reflux disease without esophagitis; M81.0 Age-related osteoporosis without current pathological fracture; F32.9 Major depressive disorder, single episode, unspecified; Z87.891 Personal history of nicotine dependence; Z79.82 Long term (current) use of aspirin; Z88.6 Allergy status to analgesic agent; Z88.5 Allergy status to narcotic agent
CPT/HCPCS: 94640; 99281; 99284

== ENCOUNTER 2017-12-26 20:10 | Inpatient (IN) | payer OTHER ==
[~2017-12-26] VITALS: Ht 167.6 cm; Wt 79.7 kg
[~2017-12-26 20:10] MED LIST changes: -CYMBALTA30 MG PO; +CYMBALTA60 MG PO; -SENNA PLUS TAB1 EACH PO; +XOPENEX1.25 MG/3 IH; +ZOFRAN4 MG PO; -ZUPLENZ4 MG PO
[2017-12-26 20:59] LABS: HEMATOCRIT 35.1 % (36.0-46.0); HEMOGLOBIN 11.4 G/DL (11.9-15.5); MCH 30.3 PG (29.0-34.0); MCHC 32.5 G/DL (30.0-36.0); MCV 93.4 FL (83-99); PLATELET COUNT 482 K/uL (156-360); RBC DIS.WIDTH-CV 12.1 % (11.8-14.6); RBC DIS.WIDTH-SD 41.6 % (39-53); RED BLOOD COUNT 3.76 M/uL (3.80-5.20); WHITE BLOOD COUNT 14.5 K/uL (4.1-10.2)
[2017-12-26 21:08] LABS: CHLORIDE 92 mEq/L (99-109); POTASSIUM 4.1 mEq/L (3.7-5.4); SODIUM 136 mEq/L (136-147)
[2017-12-26 21:10] LABS: GLUCOSE 116 mg/dL (70-99)
[2017-12-26 21:14] LABS: CREATININE 0.7 mg/dL (0.6-1.3); GFR ESTIMATE (CALCULATED) > 59 mL/min/
[2017-12-26 21:15] LABS: UREA NITROGEN (BUN) 11 mg/dL (9-23)
[2017-12-26 21:21] LABS: TROP-I INTERPRETATION NEGATIVE; TROPONIN-I 0.02 ng/mL (0.0-0.30)
[2017-12-27] VITALS (7 sets, daily range): BP systolic 125–171; BP diastolic 69–98
[2017-12-27] MEDS ORDERED: ADVAIR 250/501 DISK IH (00:04)
[2017-12-27] MEDS ORDERED: FLAGYL500 MG PO (00:06)
[2017-12-27] MEDS ORDERED: HYOSCYAMINE0.125 M2 PO (00:06)
[2017-12-27] MEDS ORDERED: PROAIR HFA8.5 GM IH (00:06)
[2017-12-27] MEDS ORDERED: IMODIUM A-D2 M2 PO (00:06)
[2017-12-27] MEDS ORDERED: PROTONIX40 MG PO (00:06)
[2017-12-27] MEDS ORDERED: SENNA PLUS TAB1 EACH PO (00:08)
[2017-12-27 14:58] LABS: TROP-I INTERPRETATION NEGATIVE; TROPONIN-I < 0.01 ng/mL (0.0-0.30)
[2017-12-28 03:52] VITALS: BP 112/65
[2017-12-28 05:20] VITALS: BP 135/85
[2017-12-28 06:36] LABS: HEMATOCRIT 34.8 % (36.0-46.0); HEMOGLOBIN 10.7 G/DL (11.9-15.5); MCH 29.4 PG (29.0-34.0); MCHC 30.7 G/DL (30.0-36.0); MCV 95.6 FL (83-99); PLATELET COUNT 508 K/uL (156-360); RBC DIS.WIDTH-CV 12.5 % (11.8-14.6); RBC DIS.WIDTH-SD 43.6 % (39-53); RED BLOOD COUNT 3.64 M/uL (3.80-5.20); WHITE BLOOD COUNT 16.5 K/uL (4.1-10.2)
[2017-12-28 06:58] LABS: CHLORIDE 94 MEQ/L (99-109); CREATININE 0.6 MG/DL (0.6-1.3); GFR ESTIMATE (CALCULATED) > 59 mL/min/; GLUCOSE 114 mg/dL (70-99); POTASSIUM 4.5 MEQ/L (3.7-5.4); SODIUM 136 MEQ/L (136-147); UREA NITROGEN (BUN) 10 mg/dL (9-23)
[2017-12-28 07:12] LABS: C DIFF TOXIN ND (NEGATIVE)
[2017-12-28 07:25] VITALS: BP 174/100
[2017-12-28] MEDS ORDERED: EXCEDRIN MIGRA1 EAC3 PO (11:49)
[2017-12-28] MEDS ORDERED: DUONEB 2.5-0.5 M3 ML AEROSOL (11:49)
[2017-12-28] MEDS ORDERED: AZITHROMYCIN500 M1 PO (11:49)
== END 2017-12-28 15:05 | disposition home or self-care (01) | DRG 190 ==
LOC: EME → EDBD 20:10 → EME 20:10 → EDOF 23:38 → ENRESERV 23:46 → EDOF 12-27 01:45 → 5EAST 12-27 01:45 → ENRESERV 12-27 01:52 → 5EAST 12-27 02:43
PROVIDERS: Hospitalist; Physician Assistant Medical
DX: J44.1 Chronic obstructive pulmonary disease with (acute) exacerbation (principal); I50.21 Acute systolic (congestive) heart failure; J96.11 Chronic respiratory failure with hypoxia; J96.12 Chronic respiratory failure with hypercapnia; F33.9 Major depressive disorder, recurrent, unspecified; E11.43 Type 2 diabetes mellitus with diabetic autonomic (poly)neuropathy; K31.84 Gastroparesis; E78.5 Hyperlipidemia, unspecified; I11.0 Hypertensive heart disease with heart failure; I25.10 Atherosclerotic heart disease of native coronary artery without angina pectoris; K21.9 Gastro-esophageal reflux disease without esophagitis; I25.82 Chronic total occlusion of coronary artery; D64.9 Anemia, unspecified; F41.9 Anxiety disorder, unspecified; Z99.81 Dependence on supplemental oxygen; Z87.891 Personal history of nicotine dependence; I25.2 Old myocardial infarction; Z87.11 Personal history of peptic ulcer disease; Z79.82 Long term (current) use of aspirin; Z88.6 Allergy status to analgesic agent
CPT/HCPCS: 71046; 71275; 80048; 83605; 84484; 85027; 87040; 87493; 93005; 94640; 94799; 99281; 99285; J0360; J1100; J1650; J1956; J7030; J7512

== ENCOUNTER 2017-12-30 01:50 | Inpatient (IN) | payer OTHER ==
[~2017-12-30] VITALS: Ht 162.6 cm; Wt 81.4 kg
[~2017-12-30 01:50] MED LIST changes: +AZITHROMYCIN500 M1 PO; +FLAGYL500 MG PO; +HYOSCYAMINE0.125 M2 PO; +IMODIUM A-D2 M2 PO; +SENNA PLUS TAB1 EACH PO
[2017-12-30 02:38] LABS: CHLORIDE 90 mEq/L (99-109); POTASSIUM 3.6 mEq/L (3.7-5.4); SODIUM 132 mEq/L (136-147)
[2017-12-30 02:39] LABS: D-DIMER ELISA < 150.00 ng/mLDDU (<230)
[2017-12-30 02:40] LABS: GLUCOSE 139 mg/dL (70-99)
[2017-12-30 02:44] LABS: CREATININE 0.7 mg/dL (0.6-1.3); GFR ESTIMATE (CALCULATED) > 59 mL/min/
[2017-12-30 02:45] LABS: UREA NITROGEN (BUN) 8 mg/dL (9-23)
[2017-12-30 02:52] LABS: TROP-I INTERPRETATION NEGATIVE; TROPONIN-I 0.03 ng/mL (0.0-0.30)
[2017-12-30 02:56] LABS: HEMATOCRIT 36.3 % (36.0-46.0); MCH 30.2 PG (29.0-34.0); MCHC 33.1 G/DL (30.0-36.0); MCV 91.4 FL (83-99); PLATELET COUNT 497 K/uL (156-360); RBC DIS.WIDTH-CV 12.2 % (11.8-14.6); RBC DIS.WIDTH-SD 41.3 % (39-53); RED BLOOD COUNT 3.97 M/uL (3.80-5.20); WHITE BLOOD COUNT 18.5 K/uL (4.1-10.2)
[2017-12-30 05:44] LABS: ALBUMIN 3.5 g/dL (3.2-4.8)
[2017-12-30 05:47] LABS: TOTAL PROTEIN 5.2 g/dL (6.4-8.3)
[2017-12-30 05:49] LABS: TOTAL BILIRUBIN 0.2 mg/dL (0.0-1.0)
[2017-12-30 05:50] LABS: ALKALINE PHOSPHATASE 72 IU/L (3-129)
[2017-12-30 05:52] LABS: AST (GOT) 21 IU/L (2-34)
[2017-12-30 05:53] LABS: ALT (GPT) 24 IU/L (3-49); DIRECT BILIRUBIN 0.1 mg/dL (0.0-0.3)
[2017-12-30 07:40] VITALS: BP 123/70
[2017-12-30 08:44] LABS: APPEARANCE CLEAR ((CLEAR)); BILIRUBIN NEGATIVE; BLOOD NEGATIVE; COLOR STRAW ((YELLOW)); GLUCOSE (STRIP) NEGATIVE; KETONES NEGATIVE; LEUKOCYTES NEGATIVE; NITRITE NEGATIVE; PROTEIN (STRIP) NEGATIVE; SPECIFIC GRAVITY 1.005 (1.000-1.030); UCUL ADDED? NO; UROBILINOGEN 0.2 MG/DL (0.2-1.0)
[2017-12-30 10:06] LABS: CHLORIDE 94 MEQ/L (99-109); CREATININE 0.5 MG/DL (0.6-1.3); GFR ESTIMATE (CALCULATED) > 59 mL/min/; GLUCOSE 193 mg/dL (70-99); MAGNESIUM 1.4 mg/dl (1.3-2.7); SODIUM 133 MEQ/L (136-147); UREA NITROGEN (BUN) 6 mg/dL (9-23)
[2017-12-30] MEDS ORDERED: FLAGYL500 MG PO (11:48)
[2017-12-30 12:02] VITALS: BP 122/69
[2017-12-30 13:47] LABS: TROP-I INTERPRETATION NEGATIVE; TROPONIN-I 0.05 ng/mL (0.0-0.30)
[2017-12-30 15:00] VITALS: BP 117/64
[2017-12-30] MEDS ORDERED: FIORICET,ESG1 TABLET PO (16:57)
[2017-12-30 19:47] LABS: TROP-I INTERPRETATION NEGATIVE; TROPONIN-I 0.02 ng/mL (0.0-0.30)
[2017-12-30 20:09] VITALS: BP 143/65
[2017-12-31 00:37] VITALS: BP 132/77
[2017-12-31 01:03] LABS: TROP-I INTERPRETATION NEGATIVE; TROPONIN-I 0.03 ng/mL (0.0-0.30)
[2017-12-31 03:47] VITALS: BP 139/60
[2017-12-31 06:44] LABS: BASOPHIL (%) 0.2 % (0-1); EOSINOPHIL (%) 0.4 % (0-5); EOSINOPHIL COUNT 0.1 K/uL (0-0.3); HEMATOCRIT 31.2 % (36.0-46.0); IMMATURE GRANULOCYTE (%) 0.4 % (0.0-0.7); LYMPHOCYTE (%) 15.2 % (15-42); LYMPHOCYTE COUNT 2.6 K/uL (1.0-2.8); MCH 29.6 PG (29.0-34.0); MCHC 31.7 G/DL (30.0-36.0); MCV 93.4 FL (83-99); MONOCYTE (%) 9.8 % (3-12); MONOCYTE COUNT 1.7 K/uL (0-0.8); NEUTROPHIL COUNT 12.4 K/uL (1.8-6.4); PLATELET COUNT 426 K/uL (156-360); RBC DIS.WIDTH-CV 12.3 % (11.8-14.6); RBC DIS.WIDTH-SD 42.5 % (39-53); RED BLOOD COUNT 3.34 M/uL (3.80-5.20); WHITE BLOOD COUNT 16.8 K/uL (4.1-10.2)
[2017-12-31 06:50] LABS: HEMOGLOBIN 9.9 G/DL (11.9-15.5)
[2017-12-31 06:54] LABS: ALBUMIN 3.2 G/DL (3.2-4.8); ALKALINE PHOSPHATASE 48 IU/L (3-129); ALT (GPT) 17 IU/L (3-49); AST (GOT) 12 IU/L (2-34); CHLORIDE 98 MEQ/L (99-109); CREATININE 0.6 MG/DL (0.6-1.3); GFR ESTIMATE (CALCULATED) > 59 mL/min/; POTASSIUM 4.5 MEQ/L (3.7-5.4); SODIUM 139 MEQ/L (136-147); TOTAL BILIRUBIN 0.2 MG/DL (0.0-1.0); TOTAL PROTEIN 4.9 G/DL (6.4-8.3); UREA NITROGEN (BUN) 10 mg/dL (9-23)
[2017-12-31 07:13] LABS: GLUCOSE 118 mg/dL (70-99)
[2017-12-31 08:09] VITALS: BP 125/84
[2017-12-31 12:09] VITALS: BP 139/94
[2017-12-31] MEDS ORDERED: AZITHROMYCIN500 M1 PO (13:56)
[2017-12-31] MEDS ORDERED: PREDNISONE10 M1 PO (14:00)
== END 2017-12-31 15:07 | disposition home or self-care (01) | DRG 191 ==
LOC: EME → EDBD 01:50 → EDOF 05:12 → ENRESERV 05:13 → CANRESERV 05:13 → EDOF 05:31 → 2EAST 05:31 → ENRESERV 05:32 → 2EAST 07:23
PROVIDERS: Emergency Medicine; Hospitalist; Physician Assistant Medical
DX: J44.1 Chronic obstructive pulmonary disease with (acute) exacerbation (principal); E86.0 Dehydration; I95.9 Hypotension, unspecified; R19.7 Diarrhea, unspecified; I11.0 Hypertensive heart disease with heart failure; I50.9 Heart failure, unspecified; E78.5 Hyperlipidemia, unspecified; F32.9 Major depressive disorder, single episode, unspecified; K21.9 Gastro-esophageal reflux disease without esophagitis; G43.909 Migraine, unspecified, not intractable, without status migrainosus; F41.9 Anxiety disorder, unspecified; I25.10 Atherosclerotic heart disease of native coronary artery without angina pectoris; I51.81 Takotsubo syndrome; K31.84 Gastroparesis; J96.11 Chronic respiratory failure with hypoxia; J96.12 Chronic respiratory failure with hypercapnia; D64.9 Anemia, unspecified; E66.9 Obesity, unspecified; G89.4 Chronic pain syndrome; Z79.82 Long term (current) use of aspirin; Z87.891 Personal history of nicotine dependence; Z99.81 Dependence on supplemental oxygen; Z88.6 Allergy status to analgesic agent; Z87.11 Personal history of peptic ulcer disease; Z68.30 Body mass index [BMI] 30.0-30.9, adult
CPT/HCPCS: 71046; 80047; 80048; 80048 91; 80053; 80076; 81003; 83605; 83735; 84484; 85025; 85027; 85379; 87040; 87070; 87205; 87449; 87493; 93005; 93306; 94640; 94799; 99281; 99285; J0295; J1200; J1650; J2060; J2765; J2930; J3475; J7030; J7050; J7512

== ENCOUNTER 2018-01-03 19:25 | Observation (INO) | payer OTHER ==
[~2018-01-03] VITALS: Ht 167.6 cm; Wt 81.7 kg
[~2018-01-03 19:25] MED LIST changes: +PREDNISONE10 M1 PO
[2018-01-03 20:38] LABS: BASOPHIL (%) 0.3 % (0-1); EOSINOPHIL (%) 1.6 % (0-5); EOSINOPHIL COUNT 0.2 K/uL (0-0.3); IMMATURE GRANULOCYTE (%) 0.4 % (0.0-0.7); LYMPHOCYTE (%) 23.6 % (15-42); LYMPHOCYTE COUNT 3.2 K/uL (1.0-2.8); MONOCYTE (%) 8.1 % (3-12); MONOCYTE COUNT 1.1 K/uL (0-0.8); NEUTROPHIL COUNT 9.1 K/uL (1.8-6.4)
[2018-01-03 20:45] LABS: HEMATOCRIT 36.1 % (36.0-46.0); MCH 30.3 PG (29.0-34.0); MCHC 33.5 G/DL (30.0-36.0); MCV 90.3 FL (83-99); PLATELET COUNT 428 K/uL (156-360); RBC DIS.WIDTH-SD 39.7 % (39-53); WHITE BLOOD COUNT 13.8 K/uL (4.1-10.2)
[2018-01-03 20:58] LABS: HEMOGLOBIN 12.1 G/DL (11.9-15.5)
[2018-01-03 21:00] LABS: CHLORIDE 92 mEq/L (99-109); POTASSIUM 4.1 mEq/L (3.7-5.4); SODIUM 135 mEq/L (136-147)
[2018-01-03 21:01] LABS: GLUCOSE 154 mg/dL (70-99)
[2018-01-03 21:05] LABS: CREATININE 0.7 mg/dL (0.6-1.3); GFR ESTIMATE (CALCULATED) > 59 mL/min/
[2018-01-03 21:06] LABS: TROP-I INTERPRETATION NEGATIVE; TROPONIN-I < 0.01 ng/mL (0.0-0.30); UREA NITROGEN (BUN) 7 mg/dL (9-23)
[2018-01-04] MEDS ORDERED: LEVAQUIN500 MG PO (02:17)
[2018-01-04 05:33] LABS: D-DIMER ELISA < 150.00 ng/mLDDU (<230)
[2018-01-04 05:46] LABS: TROP-I INTERPRETATION NEGATIVE; TROPONIN-I 0.02 ng/mL (0.0-0.30)
[2018-01-04 06:19] VITALS: BP 113/74
[2018-01-04 07:40] VITALS: BP 109/77
[2018-01-04] MEDS ORDERED: NITROSTAT0.4 MG SL (10:27)
[2018-01-04 11:15] VITALS: BP 132/94
[2018-01-04 12:12] LABS: TROP-I INTERPRETATION NEGATIVE; TROPONIN-I 0.01 ng/mL (0.0-0.30)
== END 2018-01-04 18:33 | disposition home or self-care (01) ==
LOC: EME → EDBD 19:25 → EME 19:25 → EDOF 01-04 04:34 → ENRESERV 01-04 04:36 → 4SOUTH 01-04 06:02
PROVIDERS: Emergency Medicine; Hospitalist
DX: R07.89 Other chest pain (principal); G43.909 Migraine, unspecified, not intractable, without status migrainosus; J44.9 Chronic obstructive pulmonary disease, unspecified; Z99.81 Dependence on supplemental oxygen; I11.0 Hypertensive heart disease with heart failure; I50.9 Heart failure, unspecified; E78.5 Hyperlipidemia, unspecified; I25.2 Old myocardial infarction; K21.9 Gastro-esophageal reflux disease without esophagitis; Z87.891 Personal history of nicotine dependence; M19.90 Unspecified osteoarthritis, unspecified site; Z88.5 Allergy status to narcotic agent; Z88.6 Allergy status to analgesic agent
CPT/HCPCS: 70450; 71045; 80048; 84484; 85025; 85379; 85651; 93005; 94640; 94799; 99281; 99285; G0378; J1170; J1200; J1650; J2270; J2405; J2765; J3010; J7030; S0028

== ENCOUNTER 2018-01-07 20:12 | Observation (INO) | payer OTHER ==
[~2018-01-07] VITALS: Ht 167.6 cm; Wt 82.5 kg
[~2018-01-07 20:12] MED LIST changes: +NITROSTAT0.4 MG SL
[2018-01-07 20:41] LABS: HEMATOCRIT 33.4 % (36.0-46.0); HEMOGLOBIN 11.2 G/DL (11.9-15.5); MCH 29.9 PG (29.0-34.0); MCHC 33.5 G/DL (30.0-36.0); MCV 89.1 FL (83-99); PLATELET COUNT 466 K/uL (156-360); RBC DIS.WIDTH-CV 11.9 % (11.8-14.6); RBC DIS.WIDTH-SD 38.5 % (39-53); RED BLOOD COUNT 3.75 M/uL (3.80-5.20); WHITE BLOOD COUNT 13.2 K/uL (4.1-10.2)
[2018-01-07 20:54] LABS: CHLORIDE 88 mEq/L (99-109); POTASSIUM 3.4 mEq/L (3.7-5.4); SODIUM 132 mEq/L (136-147)
[2018-01-07 20:56] LABS: GLUCOSE 206 mg/dL (70-99)
[2018-01-07 20:57] LABS: TOTAL PROTEIN 6.3 g/dL (6.4-8.3)
[2018-01-07 20:58] LABS: TOTAL BILIRUBIN 0.2 mg/dL (0.0-1.0)
[2018-01-07 21:00] LABS: ALKALINE PHOSPHATASE 71 IU/L (3-129); CREATININE 0.7 mg/dL (0.6-1.3); GFR ESTIMATE (CALCULATED) > 59 mL/min/
[2018-01-07 21:01] LABS: UREA NITROGEN (BUN) 5 mg/dL (9-23)
[2018-01-07 21:02] LABS: AST (GOT) 25 IU/L (2-34)
[2018-01-07 21:03] LABS: ALT (GPT) 35 IU/L (3-49)
[2018-01-07 22:24] LABS: APPEARANCE CLEAR ((CLEAR)); BILIRUBIN NEGATIVE; BLOOD NEGATIVE; COLOR COLORLESS ((YELLOW)); GLUCOSE (STRIP) 150; KETONES NEGATIVE; LEUKOCYTES NEGATIVE; NITRITE NEGATIVE; PROTEIN (STRIP) NEGATIVE; SPECIFIC GRAVITY 1.004 (1.000-1.030); UCUL ADDED? NO; UROBILINOGEN 0.2 MG/DL (0.2-1.0)
[2018-01-07] MEDS ORDERED: PREDNISONE10 MG PO (23:21)
[2018-01-07] MEDS ORDERED: NITROGLYCERIN0.4 MG SL (23:21)
[2018-01-07] MEDS ORDERED: HYOSCYAMINE0.125 M2 PO (23:22)
[2018-01-07] MEDS ORDERED: METRONIDAZOLE500 MG PO (23:23)
[2018-01-07] MEDS ORDERED: PANTOPRAZOLE SO40 MG PO (23:24)
[2018-01-07] MEDS ORDERED: LISINOPRIL20 MG PO (23:24)
[2018-01-07] MEDS ORDERED: INDERAL20 MG PO (23:25)
[2018-01-07] MEDS ORDERED: LOPRESSOR25 MG PO (23:25)
[2018-01-07] MEDS ORDERED: METOCLOPRAMIDE H5 MG PO (23:29)
[2018-01-07] MEDS ORDERED: PREDNISONE10 M1 PO (23:30)
[2018-01-08 01:02] LABS: COMMENTS - BLOOD GASES C+A+; DEVICE NC; O2 FLOW 2 L/MIN; SITE RR
[2018-01-08 01:03] LABS: BASE EXCESS 9.4 mEq/L (-3 to +3); BICARBONATE 36.7 mEq/L (22-26); CARBOXY HGB 0.4 % (0-5); METHEMOGLOBIN 0.7 % (0-1.5); PCO2 65 mm Hg (35-45); PO2 107 mm Hg (80-100); pH 7.36 (7.35-7.45)
[2018-01-08 01:54] VITALS: BP 157/69
[2018-01-08 02:25] LABS: HEMATOCRIT 31.5 % (36.0-46.0); HEMOGLOBIN 10.5 G/DL (11.9-15.5); MCH 29.9 PG (29.0-34.0); MCHC 33.3 G/DL (30.0-36.0); MCV 89.7 FL (83-99); PLATELET COUNT 453 K/uL (156-360); RBC DIS.WIDTH-CV 12.1 % (11.8-14.6); RBC DIS.WIDTH-SD 39.7 % (39-53); RED BLOOD COUNT 3.51 M/uL (3.80-5.20)
[2018-01-08 03:48] VITALS: BP 133/80
[2018-01-08 08:17] VITALS: BP 145/88
[2018-01-08 09:25] LABS: C DIFF TOXIN ND (NEGATIVE)
[2018-01-08 09:45] LABS: CHLORIDE 101 MEQ/L (99-109); CREATININE 0.5 MG/DL (0.6-1.3); GFR ESTIMATE (CALCULATED) > 59 mL/min/; GLUCOSE 157 mg/dL (70-99); POTASSIUM 3.7 MEQ/L (3.7-5.4); UREA NITROGEN (BUN) 3 mg/dL (9-23)
[2018-01-08 09:48] LABS: SODIUM 140 MEQ/L (136-147)
[2018-01-08] MEDS ORDERED: CIPRO500 MG PO (11:27)
[2018-01-08] MEDS ORDERED: FLAGYL500 MG PO (11:27)
[2018-01-08] MEDS ORDERED: REGLAN10 MG PO (11:27)
[2018-01-08 11:28] VITALS: BP 164/107
[2018-01-08 12:20] VITALS: BP 164/107
[2018-01-08 19:54] LABS: STOOL OCCULT BLD 1ST SPECIMEN POSITIVE; STOOL OCCULT BLD 2ND SPECIMEN POSITIVE; STOOL OCCULT BLD 3RD SPECIMEN POSITIVE
== END 2018-01-08 16:03 | disposition home or self-care (01) ==
LOC: EME → EDBD 20:12 → EME 20:12 → EDOF 23:51 → ENRESERV 23:55 → 5SOUTH 01-08 01:36
PROVIDERS: Hospitalist
DX: K52.9 Noninfective gastroenteritis and colitis, unspecified (principal); G89.4 Chronic pain syndrome; R10.10 Upper abdominal pain, unspecified; K31.84 Gastroparesis; Z87.11 Personal history of peptic ulcer disease; K21.9 Gastro-esophageal reflux disease without esophagitis; D64.9 Anemia, unspecified; J44.9 Chronic obstructive pulmonary disease, unspecified; J96.10 Chronic respiratory failure, unspecified whether with hypoxia or hypercapnia; Z99.81 Dependence on supplemental oxygen; I11.9 Hypertensive heart disease without heart failure; F32.9 Major depressive disorder, single episode, unspecified; F41.9 Anxiety disorder, unspecified; Z87.891 Personal history of nicotine dependence; I25.10 Atherosclerotic heart disease of native coronary artery without angina pectoris; E78.5 Hyperlipidemia, unspecified; K22.2 Esophageal obstruction; Z82.49 Family history of ischemic heart disease and other diseases of the circulatory system; Z87.19 Personal history of other diseases of the digestive system; Z88.6 Allergy status to analgesic agent; Z88.5 Allergy status to narcotic agent
CPT/HCPCS: 36600; 74177; 80048; 80053; 81003; 82272; 82728; 83690; 85027; 87177; 87493; 87506; 94640; 94799; 99281; 99285; G0378; J0744; J1170; J1650; J2270; J2405; J2765; J3010; J7030; S0028; S0030

== ENCOUNTER 2018-01-10 20:21 | Inpatient (IN) | payer OTHER ==
[~2018-01-10] VITALS: Ht 167.6 cm; Wt 78.5 kg
[~2018-01-10 20:21] MED LIST changes: +INDERAL20 MG PO; +METOCLOPRAMIDE H5 MG PO; +METRONIDAZOLE500 MG PO; +NITROGLYCERIN0.4 MG SL
[2018-01-10 21:17] LABS: HEMATOCRIT 33.5 % (36.0-46.0); HEMOGLOBIN 11.2 G/DL (11.9-15.5); MCH 29.9 PG (29.0-34.0); MCHC 33.4 G/DL (30.0-36.0); MCV 89.3 FL (83-99); PLATELET COUNT 523 K/uL (156-360); RBC DIS.WIDTH-CV 11.9 % (11.8-14.6); RBC DIS.WIDTH-SD 38.6 % (39-53); RED BLOOD COUNT 3.75 M/uL (3.80-5.20); WHITE BLOOD COUNT 12.3 K/uL (4.1-10.2)
[2018-01-10 21:35] LABS: POTASSIUM 3.6 MEQ/L (3.7-5.4); SODIUM 136 MEQ/L (136-147)
[2018-01-10 21:41] LABS: CREATININE 0.5 MG/DL (0.6-1.3); GFR ESTIMATE (CALCULATED) > 59 mL/min/; GLUCOSE 127 mg/dL (70-99); UREA NITROGEN (BUN) 6 mg/dL (9-23)
[2018-01-10 21:46] LABS: CHLORIDE 90 MEQ/L (99-109)
[2018-01-11 02:51] LABS: APPEARANCE CLEAR ((CLEAR)); BILIRUBIN NEGATIVE; BLOOD NEGATIVE; COLOR STRAW ((YELLOW)); GLUCOSE (STRIP) NEGATIVE; KETONES 5; LEUKOCYTES NEGATIVE; NITRITE NEGATIVE; PROTEIN (STRIP) NEGATIVE; SPECIFIC GRAVITY 1.005 (1.000-1.030); UROBILINOGEN 0.2 MG/DL (0.2-1.0)
[2018-01-11 03:11] LABS: AMPHETAMINE NEGATIVE (500 ng/mL); BARBITURATES NEGATIVE (200 ng/mL); BENZODIAZEPINES NEGATIVE (150 ng/mL); BUPRENORPHINE NEGATIVE (10 ng/mL); COCAINE NEGATIVE (150 ng/mL); METHADONE NEGATIVE (200 ng/mL); METHAMPHETAMINE NEGATIVE (500 ng/mL); OPIATES (MORPHINE) NEGATIVE (100 ng/mL); OXYCODONE NEGATIVE (100 ng/mL); PHENCYCLIDINE NEGATIVE (25 ng/mL); PROPOXYPHENE NEGATIVE (300 ng/mL); THC CANNABINOIDS NEGATIVE (50 ng/mL); TRICYCLIC ANTIDEPRESSANTS NEGATIVE (300 ng/mL)
[2018-01-11 05:38] VITALS: BP 189/111
[2018-01-11 07:59] VITALS: BP 197/107
[2018-01-11 08:58] VITALS: BP 166/80
[2018-01-12 05:11] VITALS: BP 179/109
[2018-01-12 05:12] VITALS: BP 183/124
[2018-01-12 06:25] LABS: HEMATOCRIT 34.8 % (36.0-46.0); MCH 29.4 PG (29.0-34.0); MCHC 31.6 G/DL (30.0-36.0); PLATELET COUNT 510 K/uL (156-360); RED BLOOD COUNT 3.74 M/uL (3.80-5.20); WHITE BLOOD COUNT 12.9 K/uL (4.1-10.2)
[2018-01-12 06:50] LABS: UREA NITROGEN (BUN) 9 mg/dL (9-23)
[2018-01-12 07:02] LABS: CHLORIDE 94 MEQ/L (99-109); CREATININE 0.5 MG/DL (0.6-1.3); GFR ESTIMATE (CALCULATED) > 59 mL/min/; GLUCOSE 127 mg/dL (70-99); MAGNESIUM 1.8 mg/dl (1.3-2.7); POTASSIUM 4.2 MEQ/L (3.7-5.4); SODIUM 142 MEQ/L (136-147)
[2018-01-12 09:51] VITALS: BP 179/107
[2018-01-12 16:17] VITALS: BP 133/95
[2018-01-13 07:51] VITALS: BP 170/93
[2018-01-13 16:57] VITALS: BP 136/85
[2018-01-13 21:30] VITALS: BP 141/101
[2018-01-14 08:04] VITALS: BP 147/86
[2018-01-14 13:07] VITALS: BP 123/76
[2018-01-14 16:11] VITALS: BP 141/93
[2018-01-15 06:03] VITALS: BP 125/79
[2018-01-15 08:08] VITALS: BP 168/100
[2018-01-15] MEDS ORDERED: LISINOPRIL20 MG PO (09:13)
[2018-01-15] MEDS ORDERED: CLONAZEPAM0.5 MG PO (09:13)
[2018-01-15] MEDS ORDERED: PANTOPRAZOLE SO40 MG PO (09:14)
[2018-01-15] MEDS ORDERED: AMLODIPINE BESYL5 MG PO (09:15)
== END 2018-01-15 15:49 | disposition home or self-care (01) | DRG 881 ==
LOC: EME → EDBD 20:21 → 1WEST 01-11 00:50 → EDOF 01-11 00:50 → 1WEST 01-11 00:50 → ENRESERV 01-11 01:14 → 1WEST 01-11 05:26
PROVIDERS: Emergency Medicine; Internal Medicine
DX: F43.21 Adjustment disorder with depressed mood (principal); R45.851 Suicidal ideations; E87.6 Hypokalemia; F41.9 Anxiety disorder, unspecified; G89.4 Chronic pain syndrome; K31.84 Gastroparesis; M54.9 Dorsalgia, unspecified; D72.829 Elevated white blood cell count, unspecified; D47.3 Essential (hemorrhagic) thrombocythemia; J96.11 Chronic respiratory failure with hypoxia; J96.12 Chronic respiratory failure with hypercapnia; Z99.81 Dependence on supplemental oxygen; I10 Essential (primary) hypertension; I25.10 Atherosclerotic heart disease of native coronary artery without angina pectoris; I25.82 Chronic total occlusion of coronary artery; J44.9 Chronic obstructive pulmonary disease, unspecified; G43.909 Migraine, unspecified, not intractable, without status migrainosus; D64.9 Anemia, unspecified; K21.9 Gastro-esophageal reflux disease without esophagitis; R00.0 Tachycardia, unspecified; Z87.11 Personal history of peptic ulcer disease; Z87.891 Personal history of nicotine dependence
CPT/HCPCS: 71045; 80048; 81003; 83735; 85027; 90839; 94640; 94760; 94799; 97150 GO; 97166 GO; 99281; 99285; J2765; Q0177

== ENCOUNTER 2018-01-16 19:29 | Inpatient (IN) | payer OTHER ==
[~2018-01-16] VITALS: Ht 167.6 cm; Wt 78.9 kg
[~2018-01-16 19:29] MED LIST changes: +AMLODIPINE BESYL5 MG PO; +CLONAZEPAM0.5 MG PO; -INDERAL20 MG PO
[2018-01-16 20:20] LABS: HEMATOCRIT 34.5 % (36.0-46.0); HEMOGLOBIN 11.4 G/DL (11.9-15.5); MCH 29.9 PG (29.0-34.0); MCV 90.6 FL (83-99); PLATELET COUNT 582 K/uL (156-360); RBC DIS.WIDTH-CV 11.7 % (11.8-14.6); RBC DIS.WIDTH-SD 38.3 % (39-53); RED BLOOD COUNT 3.81 M/uL (3.80-5.20); WHITE BLOOD COUNT 14.7 K/uL (4.1-10.2)
[2018-01-16 20:29] LABS: CHLORIDE 93 mEq/L (99-109)
[2018-01-16 20:30] LABS: POTASSIUM 5.2 mEq/L (3.7-5.4); SODIUM 133 mEq/L (136-147)
[2018-01-16 20:31] LABS: GLUCOSE 139 mg/dL (70-99)
[2018-01-16 20:35] LABS: CREATININE 0.7 mg/dL (0.6-1.3); GFR ESTIMATE (CALCULATED) > 59 mL/min/
[2018-01-16 20:36] LABS: UREA NITROGEN (BUN) 10 mg/dL (9-23)
[2018-01-16 20:41] LABS: TROP-I INTERPRETATION NEGATIVE; TROPONIN-I < 0.01 ng/mL (0.0-0.30)
[2018-01-17 04:32] VITALS: BP 135/76
[2018-01-17 07:50] VITALS: BP 119/71
[2018-01-17 11:37] VITALS: BP 122/73
[2018-01-17 15:06] VITALS: BP 124/73
[2018-01-17 19:49] VITALS: BP 116/76
[2018-01-18 03:40] VITALS: BP 130/77
[2018-01-18 07:06] VITALS: BP 167/92
[2018-01-18 08:39] LABS: BASOPHIL (%) 0.6 % (0-1); BASOPHIL COUNT 0.1 K/uL (0-0.1); EOSINOPHIL (%) 0.9 % (0-5); EOSINOPHIL COUNT 0.1 K/uL (0-0.3); HEMATOCRIT 34.4 % (36.0-46.0); HEMOGLOBIN 11.1 G/DL (11.9-15.5); IMMATURE GRANULOCYTE (%) 0.3 % (0.0-0.7); LYMPHOCYTE (%) 24.5 % (15-42); LYMPHOCYTE COUNT 2.4 K/uL (1.0-2.8); MCH 29.4 PG (29.0-34.0); MCHC 32.3 G/DL (30.0-36.0); MONOCYTE (%) 9.5 % (3-12); MONOCYTE COUNT 0.9 K/uL (0-0.8); NEUTROPHIL (%) 64.2 % (45-76); NEUTROPHIL COUNT 6.4 K/uL (1.8-6.4); PLATELET COUNT 532 K/uL (156-360); RBC DIS.WIDTH-CV 11.6 % (11.8-14.6); RBC DIS.WIDTH-SD 39.1 % (39-53); RED BLOOD COUNT 3.78 M/uL (3.80-5.20); WHITE BLOOD COUNT 9.9 K/uL (4.1-10.2)
[2018-01-18 08:51] LABS: CHLORIDE 91 mEq/L (99-109); POTASSIUM 4.3 mEq/L (3.7-5.4); SODIUM 133 mEq/L (136-147)
[2018-01-18 08:52] LABS: GLUCOSE 125 mg/dL (70-99)
[2018-01-18 08:56] LABS: CREATININE 0.7 mg/dL (0.6-1.3); GFR ESTIMATE (CALCULATED) > 59 mL/min/
[2018-01-18 08:57] LABS: UREA NITROGEN (BUN) 10 mg/dL (9-23)
[2018-01-18 10:32] LABS: HEMOGLOBIN A1c (GLYCOHEMOGLOB) 6.2 % (Below 5.7)
[2018-01-18 13:58] VITALS: BP 142/72
[2018-01-18 20:11] VITALS: BP 151/93
[2018-01-19] VITALS: BP 151/98
[2018-01-19 04:54] VITALS: BP 158/82
[2018-01-19 07:48] VITALS: BP 146/89
[2018-01-19 12:01] VITALS: BP 143/82
[2018-01-19 19:55] VITALS: BP 172/128
[2018-01-20 00:55] VITALS: BP 140/81
[2018-01-20 04:20] VITALS: BP 136/80
[2018-01-20 07:19] VITALS: BP 151/99
[2018-01-20 15:17] VITALS: BP 137/88
[2018-01-20 20:27] VITALS: BP 173/110
[2018-01-20 23:52] VITALS: BP 141/91
[2018-01-21 06:10] VITALS: BP 143/73
[2018-01-21 07:42] VITALS: BP 140/90
[2018-01-21] MEDS ORDERED: MEDROL DOSEPAK4 MG PO (11:31)
== END 2018-01-21 14:01 | disposition home health service (06) | DRG 191 ==
LOC: EME 19:29 → 5SOUTH 01-17 03:15 → EDOF 01-17 03:15 → 5SOUTH 01-17 04:02 → ENPENDDIS 01-21 11:54 → 5SOUTH 01-21 14:01
PROVIDERS: Hospitalist; Physician Assistant
DX: J44.1 Chronic obstructive pulmonary disease with (acute) exacerbation (principal); J20.9 Acute bronchitis, unspecified; J44.0 Chronic obstructive pulmonary disease with (acute) lower respiratory infection; J96.11 Chronic respiratory failure with hypoxia; Z99.81 Dependence on supplemental oxygen; G43.909 Migraine, unspecified, not intractable, without status migrainosus; E11.43 Type 2 diabetes mellitus with diabetic autonomic (poly)neuropathy; K31.84 Gastroparesis; I25.10 Atherosclerotic heart disease of native coronary artery without angina pectoris; I10 Essential (primary) hypertension; E78.5 Hyperlipidemia, unspecified; K21.9 Gastro-esophageal reflux disease without esophagitis; K27.9 Peptic ulcer, site unspecified, unspecified as acute or chronic, without hemorrhage or perforation; F32.9 Major depressive disorder, single episode, unspecified; F41.9 Anxiety disorder, unspecified; Z87.891 Personal history of nicotine dependence; Z79.82 Long term (current) use of aspirin
CPT/HCPCS: 71046; 80048; 82948; 83036; 83880; 84484; 85025; 85027; 93005; 94640; 94644; 94760; 94799; 99281; 99285; J0456; J0696; J1644; J2405; J2920; J7030; J7512